=== PATIENT | female | born 1970 | race Caucasian/White ===

== ENCOUNTER 2018-06-21 10:22 | Outpatient (CLI) | payer OTHER | END 2018-06-21 23:59 | disposition home or self-care (01) | LOC: RAD 10:22 | DX: Z11.1 Encounter for screening for respiratory tuberculosis (principal); F17.200 Nicotine dependence, unspecified, uncomplicated | CPT/HCPCS: 71045 ==

== ENCOUNTER 2018-11-04 23:16 | Emergency (ER) | payer OTHER ==
[~2018-11-04] VITALS: Ht 167.6 cm; Wt 87.3 kg
[2018-11-05] MEDS ORDERED: ketorolac trometh inj. 60 MG/2 ML VIAL IM ONE (00:40)
[2018-11-05] MEDS ORDERED: cyclobenzaprine 10mg tablet PO ONE (02:10)
[2018-11-05 02:15] LABS: PARTIAL THROMBOPLASTIN TIME 29 SECONDS (22-32)
[2018-11-05 02:16] LABS: ALANINE AMINOTRANSFERASE 20 U/L (12-78); ALBUMIN 3.4 G/DL (3.4-5.0); ALBUMIN/GLOBULIN RATIO 0.9 (1.1-1.5); ALKALINE PHOSPHATASE 109 IU/L (46-116); ANION GAP 12 (8-16); ASPARTATE AMINO TRANSFERASE 9 U/L (10-37); BILIRUBIN,TOTAL 0.1 MG/DL (0.1-1.0); BLOOD UREA NITROGEN 15 MG/DL (7-18); CALCIUM 8.8 MG/DL (8.5-10.1); CHLORIDE 107 MMOL/L (99-107); CREATININE 0.79 MG/DL (0.40-0.90); GLUCOSE 105 MG/DL (70-104); POTASSIUM 3.8 MMOL/L (3.5-5.1); SODIUM 141 MMOL/L (135-145); TOTAL CARBON DIOXIDE 22.2 MMOL/L (24-32); TOTAL PROTEIN 7.2 G/DL (6.4-8.2); eGFR 78 ML/MIN
[2018-11-05 02:31] LABS: BASOPHILS # (AUTO) 0.1 X10'3 (0-0.2); BASOPHILS % (AUTO) 0.7 % (0-1); EOSINOPHILS # (AUTO) 0.4 X10'3 (0-0.9); HEMATOCRIT 41.6 % (35.0-45.0); HEMOGLOBIN 13.1 g/dl (12.0-16.0); LYMPHOCYTES # (AUTO) 3.4 X10'3 (1.1-4.8); LYMPHOCYTES % (AUTO) 29.6 % (21-51); MEAN CORPUSCULAR HEMOGLOBIN 23.9 PG (27.0-31.0); MEAN CORPUSCULAR HGB CONC 31.4 g/dL (33.0-36.5); MEAN PLATELET VOLUME 7.9 FL (7.4-10.4); MONOCYTES # (AUTO) 0.8 X10'3 (0-0.9); MONOCYTES % (AUTO) 6.7 % (2-12); NEUTROPHILS # (AUTO) 6.9 X10'3 (1.8-7.7); PLATELET COUNT 276 X10'3 (140-440); RED BLOOD COUNT 5.47 X10'6 (4.20-5.60); RED CELL DISTRIBUTION WIDTH 20.2 % (11.5-14.5); WHITE BLOOD COUNT 11.6 X10'3 (4.5-11.0)
[2018-11-05] MEDS ORDERED: HYDROcodone/acetaminophen 5mg/325mg tablet PO ONE (03:30)
[2018-11-05 05:01] VITALS: BP 151/91
== END 2018-11-05 05:06 | disposition home or self-care (01) ==
LOC: ER 23:18
DX: G44.209 Tension-type headache, unspecified, not intractable (principal); M54.2 Cervicalgia; R42 Dizziness and giddiness
CPT/HCPCS: 36415; 70450; 71045; 80053; 84484; 85025; 85610; 85730; 93005; 96372; 99284; J1885

== ENCOUNTER 2019-01-18 08:27 | Emergency (ER) | payer OTHER ==
[~2019-01-18] VITALS: Ht 167.6 cm; Wt 97.7 kg
[2019-01-18 09:20] LABS: CLARITY,URINE SLIGHTLY CLOUDY (Clear); COLOR,URINE YELLOW (Yellow); GLUCOSE, URINE NEGATIVE (Neg); KETONES,URINE NEGATIVE (Neg); LEUKOCYTE ESTERASE ,URINE NEGATIVE (Neg); NITRITES, URINE NEGATIVE (Neg); OCCULT BLOOD,URINE NEGATIVE (Neg); PROTEIN,URINE NEGATIVE (Neg); UA COLLECTION TYPE CLN CATCH MIDSTREAM; UROBILINOGEN,URINE 0.2 E.U/dL (0.2-1.0)
[2019-01-18 09:21] LABS: URINE HCG NEGATIVE (NEG)
[2019-01-18 09:27] LABS: BACTERIA,URINE 2+ /HPF (Neg); MUCUS STRANDS MODERATE /LPF (Neg); RBC,URINE 0-2 /HPF (0-2); SQUAMOUS EPITHELIAL CELL,UR MANY /LPF (FEW); WBC,URINE 0-4 /HPF (0-4)
[2019-01-18 10:20] VITALS: BP 177/137
[2019-01-18] MEDS ORDERED: ketorolac trometh inj. 60 MG/2 ML VIAL IM ONE (10:20)
[2019-01-18] MEDS ORDERED: HYDROcodone/acetaminophen 5mg/325mg tablet PO ONE (10:20)
[2019-01-18 11:07] LABS: BASOPHILS # (AUTO) 0.1 X10'3 (0-0.2); BASOPHILS % (AUTO) 0.8 % (0-1); EOSINOPHILS # (AUTO) 0.1 X10'3 (0-0.9); HEMATOCRIT 40.8 % (35.0-45.0); HEMOGLOBIN 13.4 g/dl (12.0-16.0); LYMPHOCYTES # (AUTO) 2.2 X10'3 (1.1-4.8); LYMPHOCYTES % (AUTO) 27.2 % (21-51); MEAN CORPUSCULAR HEMOGLOBIN 25.9 PG (27.0-31.0); MEAN CORPUSCULAR HGB CONC 32.7 g/dL (33.0-36.5); MEAN CORPUSCULAR VOLUME 79.1 FL (78-98); MEAN PLATELET VOLUME 6.9 FL (7.4-10.4); MONOCYTES # (AUTO) 0.6 X10'3 (0-0.9); MONOCYTES % (AUTO) 7.2 % (2-12); NEUTROPHILS # (AUTO) 5.1 X10'3 (1.8-7.7); NEUTROPHILS % (AUTO) 63.8 % (42-75); PLATELET COUNT 274 X10'3 (140-440); RED BLOOD COUNT 5.16 X10'6 (4.20-5.60); RED CELL DISTRIBUTION WIDTH 16.6 % (11.5-14.5); WHITE BLOOD COUNT 8.1 X10'3 (4.5-11.0)
[2019-01-18 11:26] LABS: ALANINE AMINOTRANSFERASE 26 U/L (12-78); ALBUMIN 3.6 G/DL (3.4-5.0); ALBUMIN/GLOBULIN RATIO 0.9 (1.1-1.5); ALKALINE PHOSPHATASE 87 IU/L (46-116); ANION GAP 10 (8-16); ASPARTATE AMINO TRANSFERASE 17 U/L (10-37); BILIRUBIN,TOTAL 0.3 MG/DL (0.1-1.0); BLOOD UREA NITROGEN 9 MG/DL (7-18); CALCIUM 8.9 MG/DL (8.5-10.1); CHLORIDE 108 MMOL/L (99-107); CREATININE 0.75 MG/DL (0.40-0.90); GLUCOSE 97 MG/DL (70-104); LIPASE 124 U/L (73-393); POTASSIUM 4.6 MMOL/L (3.5-5.1); SODIUM 140 MMOL/L (135-145); TOTAL CARBON DIOXIDE 22.3 MMOL/L (24-32); TOTAL PROTEIN 7.6 G/DL (6.4-8.2); eGFR 83 ML/MIN
[2019-01-18] MEDS ORDERED: HYDR-3965 PO (12:08)
--- NOTE | 2019-01-18 12:38 | NUR ---
D/C VS HR 72, BP 133/67, SAO2 97%, RR 15
== END 2019-01-18 12:39 | disposition home or self-care (01) ==
LOC: ER 08:28
DX: M54.41 Lumbago with sciatica, right side (principal); M25.531 Pain in right wrist; G43.909 Migraine, unspecified, not intractable, without status migrainosus; Z79.899 Other long term (current) drug therapy
CPT/HCPCS: 36415; 72131; 80053; 81001; 81025; 83690; 85025; 96372; 99284; J1885

== ENCOUNTER 2019-01-31 08:42 | Outpatient (CLI) | payer OTHER | END 2019-01-31 23:59 | disposition home or self-care (01) | LOC: RAD 08:42 | PROVIDERS: ATTEND Family Medicine | DX: M51.27 Other intervertebral disc displacement, lumbosacral region (principal); M47.816 Spondylosis without myelopathy or radiculopathy, lumbar region; F17.200 Nicotine dependence, unspecified, uncomplicated | CPT/HCPCS: 72148 ==

== ENCOUNTER 2019-02-19 11:13 | Inpatient (IN) | payer OTHER ==
[~2019-02-19] VITALS: Ht 167.6 cm; Wt 93.0 kg
[2019-02-19 12:47] LABS: URINE HCG NEGATIVE (NEG)
[2019-02-19] MEDS ORDERED: LORazepam 2 mg/ml vial IV ONE (12:55)
[2019-02-19 12:56] LABS: BASOPHILS % (AUTO) 0.7 % (0-1); EOSINOPHILS # (AUTO) 0.1 X10'3 (0-0.9); EOSINOPHILS % (AUTO) 1.4 % (0-6); HEMATOCRIT 41.2 % (35.0-45.0); LYMPHOCYTES # (AUTO) 1.8 X10'3 (1.1-4.8); LYMPHOCYTES % (AUTO) 28.7 % (21-51); MEAN CORPUSCULAR HEMOGLOBIN 25.3 PG (27.0-31.0); MEAN CORPUSCULAR HGB CONC 31.6 g/dL (33.0-36.5); MEAN PLATELET VOLUME 7.4 FL (7.4-10.4); MONOCYTES # (AUTO) 0.4 X10'3 (0-0.9); NEUTROPHILS # (AUTO) 3.9 X10'3 (1.8-7.7); NEUTROPHILS % (AUTO) 62.2 % (42-75); PLATELET COUNT 254 X10'3 (140-440); RED BLOOD COUNT 5.15 X10'6 (4.20-5.60); RED CELL DISTRIBUTION WIDTH 15.6 % (11.5-14.5); WHITE BLOOD COUNT 6.4 X10'3 (4.5-11.0)
[2019-02-19 12:57] LABS: CLARITY,URINE CLEAR (Clear); COLOR,URINE STRAW (Yellow); GLUCOSE, URINE NEGATIVE (Neg); KETONES,URINE NEGATIVE (Neg); LEUKOCYTE ESTERASE ,URINE NEGATIVE (Neg); NITRITES, URINE NEGATIVE (Neg); OCCULT BLOOD,URINE NEGATIVE (Neg); PH,URINE 5.5 (4.8-8.0); PROTEIN,URINE NEGATIVE (Neg); UROBILINOGEN,URINE 0.2 E.U/dL (0.2-1.0)
[2019-02-19 13:03] LABS: UA COLLECTION TYPE CLN CATCH MIDSTREAM
[2019-02-19 13:09] LABS: ALANINE AMINOTRANSFERASE 29 U/L (12-78); ALBUMIN 3.8 G/DL (3.4-5.0); ALKALINE PHOSPHATASE 77 IU/L (46-116); ANION GAP 7 (8-16); ASPARTATE AMINO TRANSFERASE 20 U/L (10-37); BILIRUBIN,TOTAL 0.2 MG/DL (0.1-1.0); BLOOD UREA NITROGEN 11 MG/DL (7-18); BUN/CREATININE RATIO 13.4 (6.6-38.0); CALCIUM 8.9 MG/DL (8.5-10.1); CHLORIDE 107 MMOL/L (99-107); CREATININE 0.82 MG/DL (0.40-0.90); GLUCOSE 88 MG/DL (70-104); LIPASE 147 U/L (73-393); POTASSIUM 4.3 MMOL/L (3.5-5.1); SODIUM 139 MMOL/L (135-145); TOTAL CARBON DIOXIDE 24.6 MMOL/L (24-32); TOTAL PROTEIN 7.7 G/DL (6.4-8.2); eGFR 75 ML/MIN
--- NOTE | 2019-02-19 14:31 | NUR ---
PT BACK FROM MRI, PLACED ON MONITOR TO UPDATE VS, DR ANTHONY AT [facility] FOR RE-EVALUATION AND DISCUSSION OF RESULTS OF MRI NOW
[2019-02-19] MEDS ORDERED: MELO-102 PO (15:16)
[2019-02-19] MEDS ORDERED: BACL20TA PO (15:16)
[2019-02-19] MEDS ORDERED: DULO-31 PO (15:16)
[2019-02-19] MEDS ORDERED: ondansetron/PF 4mg/2ml inj IV PRN (16:15)
[2019-02-19] MEDS ORDERED: magnesium Cl slow-release 64mg tablet PO PRN (16:15)
[2019-02-19] MEDS ORDERED: morphine 2 MG/ML inj. syringe IV PRN ×2 (16:15)
[2019-02-19] MEDS ORDERED: magnesium 4gm in 100ml NS 100 ML IV PRN (16:15)
[2019-02-19] MEDS ORDERED: HYDROcodone/acetaminophen 5mg/325mg tablet PO PRN (16:15)
[2019-02-19] MEDS ORDERED: magnesium 2GM in 50ml NS 50 ML IV PRN (16:15)
[2019-02-19] MEDS ORDERED: acetaminophen 325mg tablet PO PRN ×2 (16:15)
[2019-02-19] MEDS ORDERED: potassium CL 10mEq/100ml bag 100 ML IV PRN ×2 (16:15)
[2019-02-19] MEDS ORDERED: potassium Cl 20 mEq SR tablet PO PRN ×2 (16:15)
[2019-02-19] MEDS: methylPREDNISolone SOD SUCC 1000 MG in NORMAL SALINE 100ml IV SCH (16:20)
[2019-02-19] MEDS ORDERED: methylPREDNISolone sod succ 125mg/2ml vial IV SCH (16:20)
[2019-02-19] MEDS ORDERED: insulin Lispro (HumaLOG) vial - multi-dose SQ SCH (16:25)
[2019-02-19] MEDS ORDERED: MESSAGE TO PHARMACY PO ONE (16:25)
[2019-02-19] MEDS ORDERED: dextrose 50%-water 50ml dispensing syringe IV PRN ×2 (16:25)
[2019-02-19] MEDS ORDERED: glucagon, human recombinant 1mg kit SUBCUT PRN (16:25)
[2019-02-19] MEDS ORDERED: dextrose ORAL solution 15 GM/59 ML bottle PO PRN ×2 (16:25)
--- NOTE | 2019-02-19 16:35 | NUR ---
CALLED PHARMACY TO VERIFY WHEN SOLUMEDROL WILL BE READY, [facility] STATES 10-15 MIN. WILL OBTAIN MEDICATION TO ADMINISTER WHEN READY.
[2019-02-19 16:55] LABS: HEMOGLOBIN A1C 5.4 % (4.5-6.2)
--- NOTE | 2019-02-19 17:15 | NUR ---
Received report from Margarita TEAGUE from ER. Pt. orientated to room. BG check and neuro check completed.
[2019-02-19 18:00] VITALS: BP_SYST 124; BP_SYST 130; BP_SYST 166; BP_DIAS 103; BP_DIAS 68; BP_DIAS 92
--- NOTE | 2019-02-19 18:36 | NUR ---
Problems reprioritized. Patient report given, questions answered & plan of care reviewed with Charito TEAGUE.
[2019-02-19] MEDS: heparin, porcine 5000 units/ml vial SQ SCH (20:00)
[2019-02-19] MEDS: docusate sod 100mg capsule PO SCH (20:00)
[2019-02-19] MEDS ORDERED: temazepam 15mg capsule PO PRN (21:00)
[2019-02-19] MEDS: insulin glargine (Lantus) pen - multi-dose SQ SCH (21:00)
[2019-02-19 22:00] VITALS: BP 120/66
[2019-02-20] VITALS (7 sets, daily range): BP systolic 115–171; BP diastolic 60–86
--- NOTE | 2019-02-20 06:09 | NUR ---
REPORT GIVEN TO HO MONSON.
[2019-02-20 06:44] LABS: BASOPHILS % (AUTO) 0.5 % (0-1); EOSINOPHILS % (AUTO) 0 % (0-6); HEMATOCRIT 41.3 % (35.0-45.0); HEMOGLOBIN 13.4 g/dl (12.0-16.0); LYMPHOCYTES # (AUTO) 0.6 X10'3 (1.1-4.8); LYMPHOCYTES % (AUTO) 8.7 % (21-51); MEAN CORPUSCULAR HEMOGLOBIN 25.7 PG (27.0-31.0); MEAN CORPUSCULAR HGB CONC 32.4 g/dL (33.0-36.5); MEAN CORPUSCULAR VOLUME 79.3 FL (78-98); MEAN PLATELET VOLUME 8.3 FL (7.4-10.4); MONOCYTES % (AUTO) 0.6 % (2-12); NEUTROPHILS # (AUTO) 6.4 X10'3 (1.8-7.7); NEUTROPHILS % (AUTO) 90.2 % (42-75); PLATELET COUNT 202 X10'3 (140-440); RED CELL DISTRIBUTION WIDTH 15.5 % (11.5-14.5); WHITE BLOOD COUNT 7.1 X10'3 (4.5-11.0)
[2019-02-20 07:02] LABS: ALANINE AMINOTRANSFERASE 36 U/L (12-78); ALBUMIN 3.6 G/DL (3.4-5.0); ALBUMIN/GLOBULIN RATIO 0.8 (1.1-1.5); ALKALINE PHOSPHATASE 74 IU/L (46-116); ANION GAP 13 (8-16); ASPARTATE AMINO TRANSFERASE 29 U/L (10-37); BILIRUBIN,TOTAL 0.1 MG/DL (0.1-1.0); BLOOD UREA NITROGEN 14 MG/DL (7-18); BUN/CREATININE RATIO 17.5 (6.6-38.0); CALCIUM 9.3 MG/DL (8.5-10.1); CHLORIDE 106 MMOL/L (99-107); GLUCOSE 136 MG/DL (70-104); POTASSIUM 4.4 MMOL/L (3.5-5.1); SODIUM 138 MMOL/L (135-145); TOTAL CARBON DIOXIDE 19.4 MMOL/L (24-32); TOTAL PROTEIN 7.9 G/DL (6.4-8.2); eGFR 77 ML/MIN
[2019-02-20] MEDS: docusate sod 100mg capsule PO SCH ×2 (08:00→20:00)
[2019-02-20] MEDS: K and/or MAG REPLACEMENT MC SCH (08:00)
[2019-02-20] MEDS: HYDROcodone/acetaminophen 10/325mg tab PO PRN ×3 (08:12→20:00)
[2019-02-20] MEDS: methylPREDNISolone SOD SUCC 1000 MG in NORMAL SALINE 100ml IV SCH (08:13)
[2019-02-20] MEDS: heparin, porcine 5000 units/ml vial SQ SCH ×2 (08:13→19:58)
[2019-02-20] MEDS ORDERED: gadobutrol 10mmol/10ml inj. IV ONE ×2 (08:31→17:33)
[2019-02-20] MEDS ORDERED: LORazepam 1 MG tablet PO ONE (10:45)
--- NOTE | 2019-02-20 15:00 | NUR ---
Received a telephone call from Jovi in Radiology who informed that pt had MRI today of C-spine & Cervical spine. Jovi stated there was a "abnormal lesion seen at T9 that measures 10 x 4 cm that "enhances" active disease. Recommendation was for pt to have rescanning of MRI with contrast in the future, and pt needs a consult with a Neurologist. Paged to inform her of MRI results and recommendations, via phone call from Radiology. Did not receive return phone call from Dr. Fields. Will continue to monitor patient closely.
--- NOTE | 2019-02-20 18:29 | NUR ---
Problems reprioritized. Patient report given, questions answered & plan of care reviewed with HO Mcneill.
[2019-02-20] MEDS: insulin glargine (Lantus) pen - multi-dose SQ SCH (21:00)
[2019-02-21] VITALS (8 sets, daily range): BP systolic 118–159; BP diastolic 54–86
[2019-02-21] MEDS: HYDROcodone/acetaminophen 10/325mg tab PO PRN ×4 (00:44→19:39)
[2019-02-21 05:45] LABS: BASOPHILS % (AUTO) 0.2 % (0-1); EOSINOPHILS % (AUTO) 0 % (0-6); HEMATOCRIT 36.6 % (35.0-45.0); HEMOGLOBIN 11.8 g/dl (12.0-16.0); LYMPHOCYTES # (AUTO) 0.8 X10'3 (1.1-4.8); LYMPHOCYTES % (AUTO) 5.2 % (21-51); MEAN CORPUSCULAR HEMOGLOBIN 25.4 PG (27.0-31.0); MEAN CORPUSCULAR HGB CONC 32.2 g/dL (33.0-36.5); MEAN CORPUSCULAR VOLUME 78.9 FL (78-98); MEAN PLATELET VOLUME 7.9 FL (7.4-10.4); MONOCYTES # (AUTO) 0.9 X10'3 (0-0.9); MONOCYTES % (AUTO) 5.5 % (2-12); NEUTROPHILS % (AUTO) 89.1 % (42-75); PLATELET COUNT 239 X10'3 (140-440); RED BLOOD COUNT 4.64 X10'6 (4.20-5.60); WHITE BLOOD COUNT 15.7 X10'3 (4.5-11.0)
--- NOTE | 2019-02-21 05:56 | NUR ---
REPORT GIVEN TO HO MONSON.
[2019-02-21 06:08] LABS: ALANINE AMINOTRANSFERASE 18 U/L (12-78); ALBUMIN 3.2 G/DL (3.4-5.0); ALBUMIN/GLOBULIN RATIO 0.9 (1.1-1.5); ALKALINE PHOSPHATASE 73 IU/L (46-116); ANION GAP 10 (8-16); ASPARTATE AMINO TRANSFERASE 10 U/L (10-37); BILIRUBIN,TOTAL 0.2 MG/DL (0.1-1.0); BLOOD UREA NITROGEN 16 MG/DL (7-18); BUN/CREATININE RATIO 19.3 (6.6-38.0); CALCIUM 8.9 MG/DL (8.5-10.1); CHLORIDE 106 MMOL/L (99-107); CREATININE 0.83 MG/DL (0.40-0.90); GLUCOSE 128 MG/DL (70-104); MAGNESIUM 2.1 MG/DL (1.5-2.4); POTASSIUM 4.3 MMOL/L (3.5-5.1); SODIUM 138 MMOL/L (135-145); TOTAL CARBON DIOXIDE 22.2 MMOL/L (24-32); TOTAL PROTEIN 6.6 G/DL (6.4-8.2); eGFR 74 ML/MIN
--- NOTE | 2019-02-21 06:43 | NUR ---
Patient in room ORTHO 4022. I have received report from HO Johnson and had the opportunity to ask questions and assume patient care.
[2019-02-21] MEDS: K and/or MAG REPLACEMENT MC SCH (08:00)
[2019-02-21] MEDS: nicotine 14mg patch - 24hr TD SCH (08:00)
[2019-02-21] MEDS: pantoprazole 40mg Tablet.DR PO SCH (08:03)
[2019-02-21] MEDS: docusate sod 100mg capsule PO SCH ×2 (08:04→19:38)
[2019-02-21] MEDS: duloxetine 30mg CAPSULE.DR PO SCH (08:04)
[2019-02-21] MEDS: heparin, porcine 5000 units/ml vial SQ SCH ×2 (08:10→19:38)
[2019-02-21] MEDS: methylPREDNISolone SOD SUCC 1000 MG in NORMAL SALINE 100ml IV SCH (08:30)
--- NOTE | 2019-02-21 11:56 | NUR ---
Student documentation: I have reviewed and agree with all interventions, assessments performed and documented by Cesilia Steen.
--- NOTE | 2019-02-21 18:48 | NUR ---
Problems reprioritized. Patient report given, questions answered & plan of care reviewed with HO Alas.
--- NOTE | 2019-02-21 18:49 | NUR ---
Patient in room ORTHO 4022. I have received report from ERMIAS TEAGUE and had the opportunity to ask questions and assume patient care.
[2019-02-21] MEDS: insulin glargine (Lantus) pen - multi-dose SQ SCH (21:00)
[2019-02-22 06:00] VITALS: BP 137/62
[2019-02-22 06:04] LABS: BASOPHILS % (AUTO) 0.1 % (0-1); EOSINOPHILS % (AUTO) 0 % (0-6); HEMATOCRIT 36.7 % (35.0-45.0); HEMOGLOBIN 11.7 g/dl (12.0-16.0); MEAN CORPUSCULAR HEMOGLOBIN 25.4 PG (27.0-31.0); MEAN CORPUSCULAR HGB CONC 31.9 g/dL (33.0-36.5); MEAN CORPUSCULAR VOLUME 79.6 FL (78-98); MEAN PLATELET VOLUME 8.1 FL (7.4-10.4); MONOCYTES # (AUTO) 0.8 X10'3 (0-0.9); MONOCYTES % (AUTO) 5.8 % (2-12); NEUTROPHILS # (AUTO) 11.2 X10'3 (1.8-7.7); NEUTROPHILS % (AUTO) 86.1 % (42-75); PLATELET COUNT 227 X10'3 (140-440); RED BLOOD COUNT 4.62 X10'6 (4.20-5.60); RED CELL DISTRIBUTION WIDTH 15.8 % (11.5-14.5)
[2019-02-22 06:20] LABS: ALANINE AMINOTRANSFERASE 16 U/L (12-78); ALBUMIN 3.1 G/DL (3.4-5.0); ALBUMIN/GLOBULIN RATIO 0.9 (1.1-1.5); ALKALINE PHOSPHATASE 58 IU/L (46-116); ANION GAP 11 (8-16); ASPARTATE AMINO TRANSFERASE 8 U/L (10-37); BILIRUBIN,TOTAL 0.2 MG/DL (0.1-1.0); BLOOD UREA NITROGEN 14 MG/DL (7-18); BUN/CREATININE RATIO 21.5 (6.6-38.0); CALCIUM 8.6 MG/DL (8.5-10.1); CHLORIDE 106 MMOL/L (99-107); CREATININE 0.65 MG/DL (0.40-0.90); GLUCOSE 101 MG/DL (70-104); MAGNESIUM 2.3 MG/DL (1.5-2.4); POTASSIUM 4.4 MMOL/L (3.5-5.1); SODIUM 140 MMOL/L (135-145); TOTAL CARBON DIOXIDE 23.5 MMOL/L (24-32); TOTAL PROTEIN 6.4 G/DL (6.4-8.2); eGFR > 90 ML/MIN
--- NOTE | 2019-02-22 06:20 | NUR ---
Problems reprioritized. Patient report given, questions answered & plan of care reviewed with ALEKSANDRA TEAGUE.
--- NOTE | 2019-02-22 06:33 | NUR ---
Patient in room ORTHO 4022. I have received report from Evette TEAGUE and had the opportunity to ask questions and assume patient care.
[2019-02-22] MEDS: pantoprazole 40mg Tablet.DR PO SCH (07:50)
[2019-02-22 08:00] VITALS: BP_SYST 122; BP_SYST 135; BP_SYST 147; BP_DIAS 60; BP_DIAS 70; BP_DIAS 76
[2019-02-22] MEDS: nicotine 14mg patch - 24hr TD SCH (08:00)
[2019-02-22] MEDS: K and/or MAG REPLACEMENT MC SCH (08:00)
[2019-02-22] MEDS: docusate sod 100mg capsule PO SCH ×2 (08:19→19:52)
[2019-02-22] MEDS: duloxetine 30mg CAPSULE.DR PO SCH (08:20)
[2019-02-22] MEDS: heparin, porcine 5000 units/ml vial SQ SCH ×2 (08:21→19:52)
[2019-02-22] MEDS: methylPREDNISolone SOD SUCC 1000 MG in NORMAL SALINE 100ml IV SCH (08:34)
[2019-02-22] MEDS: HYDROcodone/acetaminophen 10/325mg tab PO PRN ×3 (09:24→21:08)
[2019-02-22 10:00] VITALS: BP 122/60
--- NOTE | 2019-02-22 11:45 | NUR ---
Student documentation: I have reviewed all interventions, assessments performed and documented by London Steele. Student Medication Administration: For this medication-pass time frame, all medication were reviewed, dispensed, administered and documented per hospital policy by London Steele.
[2019-02-22 18:00] VITALS: BP 144/65
--- NOTE | 2019-02-22 18:26 | NUR ---
Patient report given to Corazon TEAGUE
--- NOTE | 2019-02-22 18:45 | NUR ---
Patient in room ORTHO 4022. I have received report from HO Main and had the opportunity to ask questions and assume patient care.
[2019-02-22] MEDS: insulin glargine (Lantus) pen - multi-dose SQ SCH (21:00)
[2019-02-22 22:00] VITALS: BP 139/69
[2019-02-23] VITALS (7 sets, daily range): BP systolic 96–163; BP diastolic 45–86
[2019-02-23] MEDS: HYDROcodone/acetaminophen 10/325mg tab PO PRN ×4 (02:44→17:21)
--- NOTE | 2019-02-23 06:28 | NUR ---
Patient in room ORTHO 4022. I have received report from Corazon TEAGUE and had the opportunity to ask questions and assume patient care.
[2019-02-23 06:36] LABS: BASOPHILS % (AUTO) 0.3 % (0-1); EOSINOPHILS % (AUTO) 0 % (0-6); HEMATOCRIT 35.3 % (35.0-45.0); HEMOGLOBIN 11.3 g/dl (12.0-16.0); LYMPHOCYTES # (AUTO) 1.4 X10'3 (1.1-4.8); LYMPHOCYTES % (AUTO) 12.9 % (21-51); MEAN CORPUSCULAR HEMOGLOBIN 25.2 PG (27.0-31.0); MEAN CORPUSCULAR VOLUME 78.7 FL (78-98); MEAN PLATELET VOLUME 8.4 FL (7.4-10.4); MONOCYTES # (AUTO) 0.9 X10'3 (0-0.9); NEUTROPHILS # (AUTO) 8.8 X10'3 (1.8-7.7); NEUTROPHILS % (AUTO) 78.8 % (42-75); PLATELET COUNT 240 X10'3 (140-440); RED BLOOD COUNT 4.48 X10'6 (4.20-5.60); WHITE BLOOD COUNT 11.2 X10'3 (4.5-11.0)
--- NOTE | 2019-02-23 06:37 | NUR ---
Problems reprioritized. Patient report given, questions answered & plan of care reviewed with HO Robins.
[2019-02-23 07:08] LABS: ALANINE AMINOTRANSFERASE 20 U/L (12-78); ALBUMIN 3.1 G/DL (3.4-5.0); ALBUMIN/GLOBULIN RATIO 0.9 (1.1-1.5); ALKALINE PHOSPHATASE 54 IU/L (46-116); ANION GAP 9 (8-16); ASPARTATE AMINO TRANSFERASE 11 U/L (10-37); BILIRUBIN,TOTAL 0.2 MG/DL (0.1-1.0); BLOOD UREA NITROGEN 15 MG/DL (7-18); BUN/CREATININE RATIO 17.4 (6.6-38.0); CALCIUM 8.6 MG/DL (8.5-10.1); CHLORIDE 105 MMOL/L (99-107); CREATININE 0.86 MG/DL (0.40-0.90); GLUCOSE 89 MG/DL (70-104); MAGNESIUM 2.2 MG/DL (1.5-2.4); POTASSIUM 4.1 MMOL/L (3.5-5.1); SODIUM 139 MMOL/L (135-145); TOTAL CARBON DIOXIDE 25.3 MMOL/L (24-32); TOTAL PROTEIN 6.4 G/DL (6.4-8.2); eGFR 71 ML/MIN
[2019-02-23] MEDS: pantoprazole 40mg Tablet.DR PO SCH (07:18)
[2019-02-23] MEDS: docusate sod 100mg capsule PO SCH ×2 (07:18→20:06)
[2019-02-23] MEDS: duloxetine 30mg CAPSULE.DR PO SCH (07:19)
[2019-02-23] MEDS: nicotine 14mg patch - 24hr TD SCH (07:20)
[2019-02-23] MEDS: methylPREDNISolone SOD SUCC 1000 MG in NORMAL SALINE 100ml IV SCH (07:20)
[2019-02-23] MEDS: K and/or MAG REPLACEMENT MC SCH (07:20)
[2019-02-23] MEDS: heparin, porcine 5000 units/ml vial SQ SCH ×2 (07:21→20:06)
--- NOTE | 2019-02-23 11:43 | NUR ---
Student Medication Administration: For this medication-pass time frame, all medication were reviewed, dispensed, administered and documented per hospital policy by Petra Steele. Student documentation: I have reviewed all interventions, assessments performed and documented by Petra Steele.
--- NOTE | 2019-02-23 11:54 | NUR ---
Initial: Pt admit with MS flareup reporting difficulty swallowing secondary to numbness. Pt s/p BSS 02/[address] tavares to continue regular diet d/t pt swallowing well with no s/s aspiration. Pt on regular diet documented with 75-100% PO intake throughout LOS meeting nutrient needs. Pt s/p MRI with a lesion noted in medulla oblongata and thoracic cord per MD notes. LBM 02/21 receiving routine Colace. No edema or wounds. No nutrition diagnosis at this time. Will continue to follow. Recommendations: 1) Continue regular diet 2) Bowel care 3) Wt per rx Addendum: 02/23/19 at [address] Amended: Links added.
--- NOTE | 2019-02-23 18:18 | NUR ---
Problems reprioritized. Patient report given, questions answered & plan of care reviewed with Prudence RN.
--- NOTE | 2019-02-23 18:50 | NUR ---
Patient in room ORTHO 4022. I have received report from Shimon TEAGUE and had the opportunity to ask questions and assume patient care. patient is with family by his bedside.
[2019-02-23] MEDS: insulin glargine (Lantus) pen - multi-dose SQ SCH (21:00)
[2019-02-24] MEDS: HYDROcodone/acetaminophen 10/325mg tab PO PRN ×3 (05:42→14:06)
[2019-02-24 06:00] VITALS: BP 131/69
[2019-02-24 06:10] LABS: BASOPHILS % (AUTO) 0.4 % (0-1); EOSINOPHILS % (AUTO) 0 % (0-6); HEMATOCRIT 35.7 % (35.0-45.0); HEMOGLOBIN 11.7 g/dl (12.0-16.0); LYMPHOCYTES # (AUTO) 1.8 X10'3 (1.1-4.8); LYMPHOCYTES % (AUTO) 16.8 % (21-51); MEAN CORPUSCULAR HEMOGLOBIN 25.5 PG (27.0-31.0); MEAN CORPUSCULAR HGB CONC 32.8 g/dL (33.0-36.5); MEAN CORPUSCULAR VOLUME 77.7 FL (78-98); MEAN PLATELET VOLUME 8.1 FL (7.4-10.4); MONOCYTES % (AUTO) 9.8 % (2-12); NEUTROPHILS # (AUTO) 7.7 X10'3 (1.8-7.7); PLATELET COUNT 236 X10'3 (140-440); RED BLOOD COUNT 4.59 X10'6 (4.20-5.60); RED CELL DISTRIBUTION WIDTH 15.8 % (11.5-14.5); WHITE BLOOD COUNT 10.5 X10'3 (4.5-11.0)
[2019-02-24 06:22] LABS: ALANINE AMINOTRANSFERASE 22 U/L (12-78); ALBUMIN 2.9 G/DL (3.4-5.0); ALBUMIN/GLOBULIN RATIO 0.9 (1.1-1.5); ALKALINE PHOSPHATASE 50 IU/L (46-116); ANION GAP 5 (8-16); ASPARTATE AMINO TRANSFERASE 11 U/L (10-37); BILIRUBIN,TOTAL 0.2 MG/DL (0.1-1.0); BLOOD UREA NITROGEN 19 MG/DL (7-18); BUN/CREATININE RATIO 22.9 (6.6-38.0); CALCIUM 8.5 MG/DL (8.5-10.1); CHLORIDE 106 MMOL/L (99-107); CREATININE 0.83 MG/DL (0.40-0.90); GLUCOSE 86 MG/DL (70-104); MAGNESIUM 2.2 MG/DL (1.5-2.4); POTASSIUM 4.2 MMOL/L (3.5-5.1); SODIUM 140 MMOL/L (135-145); TOTAL CARBON DIOXIDE 28.7 MMOL/L (24-32); eGFR 74 ML/MIN
--- NOTE | 2019-02-24 06:24 | NUR ---
Problems reprioritized. Patient report given, questions answered & plan of care reviewed with Shimon TEAGUE. Patient ambulating in the hallway with a front wheel walker and did request pain meds and was administered per MD order.
--- NOTE | 2019-02-24 06:25 | NUR ---
Patient in room ORTHO 4018. I have received report from Damaris TEAGUE and had the opportunity to ask questions and assume patient care.
[2019-02-24] MEDS: docusate sod 100mg capsule PO SCH (07:02)
[2019-02-24] MEDS: duloxetine 30mg CAPSULE.DR PO SCH (07:02)
[2019-02-24] MEDS: pantoprazole 40mg Tablet.DR PO SCH (07:02)
[2019-02-24] MEDS: K and/or MAG REPLACEMENT MC SCH (07:03)
[2019-02-24] MEDS: methylPREDNISolone SOD SUCC 1000 MG in NORMAL SALINE 100ml IV SCH (07:03)
[2019-02-24] MEDS: heparin, porcine 5000 units/ml vial SQ SCH (07:03)
[2019-02-24] MEDS: nicotine 14mg patch - 24hr TD SCH (07:04)
[2019-02-24 10:00] VITALS: BP 144/78
[2019-02-24] MEDS ORDERED: PRED20TA PO (12:39)
--- NOTE | 2019-02-24 15:00 | NUR ---
Safe DC with spouse. all personal items with patient.
== END 2019-02-24 15:00 | disposition home or self-care (01) | DRG 60 ==
LOC: ER 11:14 → ED HOLD 16:13 → ORTHO 4S 17:46
PROVIDERS: ADMIT Internal Medicine; ATTEND Internal Medicine
DX: G35 Multiple sclerosis (principal); F17.210 Nicotine dependence, cigarettes, uncomplicated; M50.30 Other cervical disc degeneration, unspecified cervical region; M51.36 Other intervertebral disc degeneration, lumbar region; F32.9 Major depressive disorder, single episode, unspecified; G43.909 Migraine, unspecified, not intractable, without status migrainosus; Z79.1 Long term (current) use of non-steroidal anti-inflammatories (NSAID); Z79.899 Other long term (current) drug therapy
CPT/HCPCS: 36415; 70553; 72156; 72157; 76937; 80053; 81003; 81025; 82948; 83036; 83690; 83735; 85025; 87081; 92508; 92616; 96374; 97110; 97116; 97162; 97530; 99285; A9585; G0378; J1644; J1815; J2060; J2270; J2930

== ENCOUNTER 2019-02-28 10:20 | Emergency (ER) | payer OTHER ==
[~2019-02-28] VITALS: Ht 167.6 cm; Wt 93.0 kg
[~2019-02-28 10:20] MED LIST: BACL20TA PO; DULO-31 PO; MELO-102 PO; PRED20TA PO
[2019-02-28 10:30] VITALS: BP 172/98
[2019-02-28] MEDS ORDERED: HYDR-4353 PO (13:12)
[2019-02-28] MEDS ORDERED: HYDROcodone/acetaminophen 10/325mg tab PO ONE (13:20)
== END 2019-02-28 13:34 | disposition home or self-care (01) ==
LOC: ER 10:20
DX: G35 Multiple sclerosis (principal); G43.909 Migraine, unspecified, not intractable, without status migrainosus; Z79.899 Other long term (current) drug therapy
CPT/HCPCS: 99284

== ENCOUNTER 2019-05-15 10:15 | Emergency (ER) | payer OTHER ==
[~2019-05-15] VITALS: Ht 167.6 cm; Wt 99.0 kg
[~2019-05-15 10:15] MED LIST changes: -PRED20TA PO
[2019-05-15 10:39] VITALS: BP 170/95
[2019-05-15] MEDS ORDERED: GABA-530 PO (11:53)
[2019-05-15] MEDS ORDERED: HYDR-4383 PO (11:53)
== END 2019-05-15 12:13 | disposition home or self-care (01) ==
LOC: ER 10:16
DX: G35 Multiple sclerosis (principal); M79.605 Pain in left leg; G43.909 Migraine, unspecified, not intractable, without status migrainosus; Z79.899 Other long term (current) drug therapy
CPT/HCPCS: 99283

== ENCOUNTER 2019-07-10 10:06 | Emergency (ER) | payer OTHER ==
[~2019-07-10] VITALS: Ht 167.6 cm; Wt 97.3 kg
[~2019-07-10 10:06] MED LIST changes: +GABA-530 PO; +HYDR-4383 PO
[2019-07-10 10:08] VITALS: BP 191/86
[2019-07-10] MEDS ORDERED: dexamethasone sod phosphate 10mg/ml inj IM STA (10:21)
[2019-07-10] MEDS ORDERED: gabapentin 400mg capsule PO STA (10:21)
[2019-07-10] MEDS ORDERED: gabapentin 300mg capsule PO STA (10:24)
[2019-07-10] MEDS ORDERED: GABA-532 PO (10:25)
[2019-07-10] MEDS ORDERED: ketorolac trometh. 30mg/ml inj. IM ONE (10:25)
[2019-07-10] MEDS ORDERED: HYDR-4383 PO (10:25)
== END 2019-07-10 11:00 | disposition home or self-care (01) ==
LOC: ER 10:06
DX: G35 Multiple sclerosis (principal); G89.29 Other chronic pain; G43.909 Migraine, unspecified, not intractable, without status migrainosus
CPT/HCPCS: 96372; 99284; J1100; J1885

== ENCOUNTER 2019-12-13 13:30 | Emergency (ER) | payer BC, OTHER ==
[~2019-12-13] VITALS: Ht 167.6 cm; Wt 88.0 kg
[~2019-12-13 13:30] MED LIST changes: +GABA-532 PO
[2019-12-13 14:20] VITALS: BP 152/108
[2019-12-13] MEDS ORDERED: HYDROcodone/acetaminophen 10/325mg tab PO ONE (14:50)
[2019-12-13] MEDS ORDERED: dexamethasone sod phosphate 10mg/ml inj IM STA (15:35)
[2019-12-13] MEDS ORDERED: HYDR-3965 PO (15:37)
== END 2019-12-13 16:30 | disposition home or self-care (01) ==
LOC: EEVIPCON 13:31 → ER 13:31
DX: G89.29 Other chronic pain (principal); M54.5 Low back pain; M79.604 Pain in right leg; M25.551 Pain in right hip; G43.909 Migraine, unspecified, not intractable, without status migrainosus; Z79.899 Other long term (current) drug therapy
CPT/HCPCS: 96372; 99283; J1100

== ENCOUNTER 2020-02-25 12:35 | Emergency (ER) | payer BC ==
[~2020-02-25] VITALS: Ht 167.6 cm; Wt 95.9 kg
[2020-02-25 12:37] VITALS: BP 140/88
[2020-02-25] MEDS ORDERED: ketorolac trometh inj. 60 MG/2 ML VIAL IM ONE (12:45)
== END 2020-02-25 13:04 | disposition home or self-care (01) ==
LOC: ER 12:35 → EEVIPCON 12:35 → ER 13:04
DX: M79.18 Myalgia, other site (principal); M70.61 Trochanteric bursitis, right hip; G35 Multiple sclerosis; M25.551 Pain in right hip; G43.909 Migraine, unspecified, not intractable, without status migrainosus; G89.29 Other chronic pain; F17.200 Nicotine dependence, unspecified, uncomplicated; Z79.899 Other long term (current) drug therapy; Y93.9 Activity, unspecified
CPT/HCPCS: 96372; 99283; J1885

== ENCOUNTER 2020-02-26 10:48 | Emergency (ER) | payer BC ==
[2020-02-26 10:51] VITALS: BP 156/88
--- NOTE | 2020-02-26 14:08 | NUR ---
PT WAS SEEN AND TREATED BY VINH MENSAH. NURSING NOTE NOT DONE.
== END 2020-02-26 14:09 | disposition home or self-care (01) ==
LOC: ER 10:49 → EEVIPCON 10:49 → ER 14:09
DX: Z00.00 Encounter for general adult medical examination without abnormal findings (principal); G43.909 Migraine, unspecified, not intractable, without status migrainosus; G89.29 Other chronic pain; Z79.899 Other long term (current) drug therapy
CPT/HCPCS: 99281

== ENCOUNTER 2020-07-16 12:20 | Inpatient (IN) | payer BC, OTHER ==
[~2020-07-16] VITALS: Ht 167.6 cm; Wt 95.5 kg
[2020-07-16 12:52] LABS: BASOPHILS % (AUTO) 0.5 % (0-1); EOSINOPHILS # (AUTO) 0.1 X10'3 (0-0.9); EOSINOPHILS % (AUTO) 0.8 % (0-6); HEMATOCRIT 51.1 % (35.0-45.0); HEMOGLOBIN 17.2 g/dl (12.0-16.0); LYMPHOCYTES # (AUTO) 2.5 X10'3 (1.1-4.8); LYMPHOCYTES % (AUTO) 26.7 % (21-51); MEAN CORPUSCULAR HEMOGLOBIN 29.2 PG (27.0-31.0); MEAN CORPUSCULAR HGB CONC 33.6 g/dL (33.0-36.5); MEAN CORPUSCULAR VOLUME 86.8 FL (78-98); MEAN PLATELET VOLUME 7.4 FL (7.4-10.4); MONOCYTES # (AUTO) 0.5 X10'3 (0-0.9); MONOCYTES % (AUTO) 5.3 % (2-12); NEUTROPHILS # (AUTO) 6.2 X10'3 (1.8-7.7); NEUTROPHILS % (AUTO) 66.7 % (42-75); PLATELET COUNT 281 X10'3 (140-440); RED BLOOD COUNT 5.88 X10'6 (4.20-5.60); RED CELL DISTRIBUTION WIDTH 12.9 % (11.5-14.5); WHITE BLOOD COUNT 9.4 X10'3 (4.5-11.0)
[2020-07-16 13:03] LABS: ALANINE AMINOTRANSFERASE 30 U/L (12-78); ALBUMIN 4.2 G/DL (3.4-5.0); ALKALINE PHOSPHATASE 104 IU/L (46-116); ANION GAP 13 (8-16); ASPARTATE AMINO TRANSFERASE 19 U/L (10-37); BILIRUBIN,TOTAL 0.3 MG/DL (0.1-1.0); BLOOD UREA NITROGEN 7 MG/DL (7-18); BUN/CREATININE RATIO 8.4 (6.6-38.0); CALCIUM 9.9 MG/DL (8.5-10.1); CHLORIDE 106 MMOL/L (99-107); CREATININE 0.83 MG/DL (0.40-0.90); GLUCOSE 101 MG/DL (70-104); PARTIAL THROMBOPLASTIN TIME 27 SECONDS (22-32); POTASSIUM 3.9 MMOL/L (3.5-5.1); SODIUM 142 MMOL/L (135-145); TOTAL CARBON DIOXIDE 23.1 MMOL/L (24-32); TOTAL PROTEIN 8.4 G/DL (6.4-8.2); eGFR 73 ML/MIN
[2020-07-16 13:05] LABS: TROPONIN I < 0.04 NG/ML (0.0-0.05)
[2020-07-16] MEDS ORDERED: iohexol 350MG/ML 100ml bottle IV ONE (13:14)
[2020-07-16] MEDS ORDERED: labetalol 20mg/4ml (5mg/ml) syringe IV ONE (13:30)
[2020-07-16] MEDS ORDERED: aspirin 81mg tab.chew PO ONE (13:30)
[2020-07-16] MEDS ORDERED: acetaminophen 325mg tablet PO PRN ×2 (15:00)
[2020-07-16] MEDS ORDERED: HYDROcodone/acetaminophen 5mg/325mg tablet PO PRN (15:00)
[2020-07-16] MEDS ORDERED: mag hydrox/Alum hydrox/simeth 30ml oral suspension PO PRN (15:00)
[2020-07-16] MEDS ORDERED: magnesium hydroxide 30ml (MOM) UD suspension PO PRN (15:00)
[2020-07-16] MEDS ORDERED: morphine 2 MG/ML inj. syringe IV PRN ×2 (15:00)
[2020-07-16] MEDS ORDERED: GADOTERATE MEGLUMINE 7.5 MMOL/15 ML VIAL IV ONE (15:49)
[2020-07-16] MEDS ORDERED: morphine 4 MG/ML inj SYRINge IV ONE (15:50)
[2020-07-16] MEDS ORDERED: DULO60CA65 PO (15:51)
[2020-07-16] MEDS ORDERED: PENI-88 PO (15:51)
[2020-07-16] MEDS: ondansetron/PF 4mg/2ml inj IV PRN (15:58)
[2020-07-16] MEDS ORDERED: ondansetron/PF 4mg/2ml inj IV ONE (16:00)
[2020-07-16] MEDS ORDERED: methylPREDNISolone sod succ 125mg/2ml vial IV ONE (16:45)
[2020-07-16] MEDS ORDERED: methylPREDNISolone SOD SUCC 1000 MG in NORMAL SALINE 100ml IV ONE (17:19)
--- NOTE | 2020-07-16 19:07 | NUR ---
Report from Barrie in ED
--- NOTE | 2020-07-16 19:25 | NUR ---
pt to floor, walked from [facility] in [place]- 1 ps contact
[2020-07-16 19:30] VITALS: BP 176/85
[2020-07-16 20:00] VITALS: BP 135/76
[2020-07-16] MEDS: HYDROcodone/acetaminophen 10/325mg tab PO PRN (20:55)
[2020-07-16 22:00] VITALS: BP 138/72
[2020-07-17 05:56] LABS: BASOPHILS % (AUTO) 0.3 % (0-1); EOSINOPHILS % (AUTO) 0 % (0-6); HEMATOCRIT 46.9 % (35.0-45.0); HEMOGLOBIN 15.5 g/dl (12.0-16.0); LYMPHOCYTES # (AUTO) 0.9 X10'3 (1.1-4.8); LYMPHOCYTES % (AUTO) 8.9 % (21-51); MEAN CORPUSCULAR HEMOGLOBIN 28.9 PG (27.0-31.0); MEAN CORPUSCULAR HGB CONC 33.1 g/dL (33.0-36.5); MEAN CORPUSCULAR VOLUME 87.3 FL (78-98); MEAN PLATELET VOLUME 7.6 FL (7.4-10.4); MONOCYTES # (AUTO) 0.1 X10'3 (0-0.9); MONOCYTES % (AUTO) 0.7 % (2-12); NEUTROPHILS # (AUTO) 9.2 X10'3 (1.8-7.7); NEUTROPHILS % (AUTO) 90.1 % (42-75); PLATELET COUNT 239 X10'3 (140-440); RED BLOOD COUNT 5.37 X10'6 (4.20-5.60); RED CELL DISTRIBUTION WIDTH 12.9 % (11.5-14.5); WHITE BLOOD COUNT 10.2 X10'3 (4.5-11.0)
[2020-07-17 06:00] VITALS: BP 115/73
[2020-07-17 06:13] LABS: ALBUMIN 3.3 G/DL (3.4-5.0); ANION GAP 13 (8-16); BLOOD UREA NITROGEN 14 MG/DL (7-18); BUN/CREATININE RATIO 16.7 (6.6-38.0); CALCIUM 9.2 MG/DL (8.5-10.1); CHLORIDE 106 MMOL/L (99-107); CREATININE 0.84 MG/DL (0.40-0.90); GLUCOSE 140 MG/DL (70-104); POTASSIUM 4.2 MMOL/L (3.5-5.1); SODIUM 142 MMOL/L (135-145); TOTAL CARBON DIOXIDE 23.4 MMOL/L (24-32); eGFR 72 ML/MIN
--- NOTE | 2020-07-17 06:32 | NUR ---
Report to Rebeca TEAGUE
[2020-07-17] MEDS ORDERED: methylPREDNISolone sod succ 125mg/2ml vial IV SCH (08:00)
[2020-07-17] MEDS: methylPREDNISolone SOD SUCC 1000 MG in NORMAL SALINE 100ml IV SCH (08:35)
[2020-07-17] MEDS: HYDROcodone/acetaminophen 10/325mg tab PO PRN ×3 (10:38→22:20)
--- NOTE | 2020-07-17 12:06 | NUR ---
PAGER ID: [phone] MESSAGE: [phone] Claudia Harris Neuro nurse recommending PT to work with her secondary to vision problems. [phone] SERENA
[2020-07-17] MEDS: enoxaparin 40mg/0.4ml syringe SUBCUT SCH ×2 (13:04→20:14)
[2020-07-17 18:00] VITALS: BP 174/78
--- NOTE | 2020-07-17 18:30 | NUR ---
Report from Rebeca TEAGUE
[2020-07-17] MEDS ORDERED: enoxaparin 40mg/0.4ml syringe SUBCUT SCH (20:00)
[2020-07-17 22:00] VITALS: BP 137/70
[2020-07-18] MEDS: HYDROcodone/acetaminophen 10/325mg tab PO PRN ×4 (05:12→20:21)
[2020-07-18 06:00] VITALS: BP 131/72
[2020-07-18 06:07] LABS: BASOPHILS # (AUTO) 0.1 X10'3 (0-0.2); BASOPHILS % (AUTO) 0.4 % (0-1); EOSINOPHILS % (AUTO) 0 % (0-6); HEMATOCRIT 43.6 % (35.0-45.0); HEMOGLOBIN 14.7 g/dl (12.0-16.0); LYMPHOCYTES # (AUTO) 1.3 X10'3 (1.1-4.8); LYMPHOCYTES % (AUTO) 5.9 % (21-51); MEAN CORPUSCULAR HEMOGLOBIN 29.1 PG (27.0-31.0); MEAN CORPUSCULAR HGB CONC 33.8 g/dL (33.0-36.5); MEAN CORPUSCULAR VOLUME 86.2 FL (78-98); MEAN PLATELET VOLUME 7.9 FL (7.4-10.4); MONOCYTES % (AUTO) 4.6 % (2-12); NEUTROPHILS # (AUTO) 18.9 X10'3 (1.8-7.7); NEUTROPHILS % (AUTO) 89.1 % (42-75); PLATELET COUNT 246 X10'3 (140-440); RED BLOOD COUNT 5.05 X10'6 (4.20-5.60); RED CELL DISTRIBUTION WIDTH 12.9 % (11.5-14.5); WHITE BLOOD COUNT 21.2 X10'3 (4.5-11.0)
[2020-07-18 06:28] LABS: ALBUMIN 3.2 G/DL (3.4-5.0); ANION GAP 12 (8-16); BLOOD UREA NITROGEN 15 MG/DL (7-18); BUN/CREATININE RATIO 18.3 (6.6-38.0); CALCIUM 8.9 MG/DL (8.5-10.1); CHLORIDE 108 MMOL/L (99-107); CREATININE 0.82 MG/DL (0.40-0.90); GLUCOSE 137 MG/DL (70-104); SODIUM 143 MMOL/L (135-145); TOTAL CARBON DIOXIDE 22.8 MMOL/L (24-32); eGFR 74 ML/MIN
--- NOTE | 2020-07-18 06:31 | NUR ---
Report To Magaly TEAGUE
--- NOTE | 2020-07-18 06:45 | NUR ---
Patient in room ORTHO 4022B. I have received report from HO ENGLAND and had the opportunity to ask questions and assume patient care.
[2020-07-18] MEDS: methylPREDNISolone SOD SUCC 1000 MG in NORMAL SALINE 100ml IV SCH (09:11)
[2020-07-18] MEDS: duloxetine 30mg CAPSULE.DR PO SCH (09:11)
[2020-07-18 10:00] VITALS: BP 125/69
[2020-07-18 14:00] VITALS: BP 149/94
[2020-07-18] MEDS: ondansetron/PF 4mg/2ml inj IV PRN (14:14)
[2020-07-18 18:00] VITALS: BP 135/77
--- NOTE | 2020-07-18 18:21 | NUR ---
Problems reprioritized. Patient report given, questions answered & plan of care reviewed with HO BOSTON.
[2020-07-18] MEDS: enoxaparin 40mg/0.4ml syringe SUBCUT SCH (20:21)
[2020-07-18 22:00] VITALS: BP 156/89
[2020-07-19 06:00] VITALS: BP 150/89
--- NOTE | 2020-07-19 06:11 | NUR ---
Problems reprioritized. Patient report given, questions answered & plan of care reviewed with HO Buckner.
--- NOTE | 2020-07-19 06:31 | NUR ---
Patient in room ORTHO 4022. I have received report from Roxanna TEAGUE and had the opportunity to ask questions and assume patient care.
[2020-07-19] MEDS: HYDROcodone/acetaminophen 10/325mg tab PO PRN ×4 (07:04→19:53)
[2020-07-19] MEDS: methylPREDNISolone SOD SUCC 1000 MG in NORMAL SALINE 100ml IV SCH (07:04)
[2020-07-19] MEDS: duloxetine 30mg CAPSULE.DR PO SCH (07:05)
[2020-07-19 07:13] LABS: BASOPHILS % (AUTO) 0.2 % (0-1); EOSINOPHILS % (AUTO) 0 % (0-6); HEMATOCRIT 42.1 % (35.0-45.0); LYMPHOCYTES # (AUTO) 1.3 X10'3 (1.1-4.8); LYMPHOCYTES % (AUTO) 8.7 % (21-51); MEAN CORPUSCULAR HGB CONC 33.1 g/dL (33.0-36.5); MEAN CORPUSCULAR VOLUME 87.4 FL (78-98); MONOCYTES # (AUTO) 0.8 X10'3 (0-0.9); MONOCYTES % (AUTO) 4.9 % (2-12); NEUTROPHILS # (AUTO) 13.3 X10'3 (1.8-7.7); NEUTROPHILS % (AUTO) 86.2 % (42-75); PLATELET COUNT 227 X10'3 (140-440); RED BLOOD COUNT 4.82 X10'6 (4.20-5.60); RED CELL DISTRIBUTION WIDTH 13.1 % (11.5-14.5); WHITE BLOOD COUNT 15.5 X10'3 (4.5-11.0)
[2020-07-19 07:44] LABS: ALBUMIN 3.1 G/DL (3.4-5.0); ANION GAP 7 (8-16); BLOOD UREA NITROGEN 16 MG/DL (7-18); BUN/CREATININE RATIO 21.3 (6.6-38.0); CALCIUM 8.9 MG/DL (8.5-10.1); CHLORIDE 110 MMOL/L (99-107); CREATININE 0.75 MG/DL (0.40-0.90); GLUCOSE 108 MG/DL (70-104); POTASSIUM 4.5 MMOL/L (3.5-5.1); SODIUM 144 MMOL/L (135-145); TOTAL CARBON DIOXIDE 26.6 MMOL/L (24-32); eGFR 82 ML/MIN
[2020-07-19 10:00] VITALS: BP 137/70
--- NOTE | 2020-07-19 16:31 | NUR ---
Pt continues to feel pain occasionally on the R side of her face. Pt states she feels like the nerves on the right side of her face are taught. Pt ambulated ortho/neuro unit with PT. PT had [facility] [place] [facility] neuro consult as well, per Duane bartholomew we are to continue current treatment plan. Will continue to monitor pt.
[2020-07-19 18:00] VITALS: BP 181/84
--- NOTE | 2020-07-19 18:33 | NUR ---
Problems reprioritized. Patient report given, questions answered & plan of care reviewed with Roxanna TEAGUE.
[2020-07-19] MEDS: enoxaparin 40mg/0.4ml syringe SUBCUT SCH (19:53)
[2020-07-19 22:00] VITALS: BP 180/89
[2020-07-19] MEDS ORDERED: hydrALAZINE 20mg/ml inj. IV PRN (23:00)
[2020-07-20] MEDS: HYDROcodone/acetaminophen 10/325mg tab PO PRN ×2 (05:59→11:04)
[2020-07-20 06:00] VITALS: BP 153/77
--- NOTE | 2020-07-20 06:32 | NUR ---
Problems reprioritized. Patient report given, questions answered & plan of care reviewed with HO Buckner.
[2020-07-20 07:27] LABS: BASOPHILS % (AUTO) 0 % (0-1); EOSINOPHILS % (AUTO) 0 % (0-6); HEMATOCRIT 43.5 % (35.0-45.0); HEMOGLOBIN 14.2 g/dl (12.0-16.0); LYMPHOCYTES # (AUTO) 1.5 X10'3 (1.1-4.8); LYMPHOCYTES % (AUTO) 12.3 % (21-51); MEAN CORPUSCULAR HEMOGLOBIN 28.5 PG (27.0-31.0); MEAN CORPUSCULAR HGB CONC 32.6 g/dL (33.0-36.5); MEAN CORPUSCULAR VOLUME 87.5 FL (78-98); MEAN PLATELET VOLUME 7.8 FL (7.4-10.4); MONOCYTES # (AUTO) 0.9 X10'3 (0-0.9); MONOCYTES % (AUTO) 7.3 % (2-12); NEUTROPHILS # (AUTO) 9.7 X10'3 (1.8-7.7); NEUTROPHILS % (AUTO) 80.4 % (42-75); PLATELET COUNT 227 X10'3 (140-440); RED BLOOD COUNT 4.97 X10'6 (4.20-5.60); RED CELL DISTRIBUTION WIDTH 13.1 % (11.5-14.5); WHITE BLOOD COUNT 12.1 X10'3 (4.5-11.0)
[2020-07-20 07:28] LABS: ALBUMIN 3.1 G/DL (3.4-5.0); ANION GAP 6 (8-16); BLOOD UREA NITROGEN 18 MG/DL (7-18); BUN/CREATININE RATIO 20.9 (6.6-38.0); CHLORIDE 109 MMOL/L (99-107); CREATININE 0.86 MG/DL (0.40-0.90); GLUCOSE 99 MG/DL (70-104); POTASSIUM 4.3 MMOL/L (3.5-5.1); SODIUM 142 MMOL/L (135-145); TOTAL CARBON DIOXIDE 26.6 MMOL/L (24-32); eGFR 70 ML/MIN
[2020-07-20] MEDS: methylPREDNISolone SOD SUCC 1000 MG in NORMAL SALINE 100ml IV SCH (08:18)
[2020-07-20] MEDS: duloxetine 30mg CAPSULE.DR PO SCH (08:22)
[2020-07-20] MEDS ORDERED: HYDR-3972 PO (09:36)
[2020-07-20] MEDS ORDERED: PRED10TA23 PO (09:36)
--- NOTE | 2020-07-20 09:42 | NUR ---
PAGER ID: [phone] MESSAGE: Sita TEAGUE [phone] RE: Lola Banks [phone].. Pt has questions about return to work, pt doesn't current have PCP. Thank you.
[2020-07-20 10:00] VITALS: BP 157/76
--- NOTE | 2020-07-20 12:21 | NUR ---
Pt discharged with . Iv removed with no complications. All questions/concerns reviewed with pt. Pt belongings sent with pt. Pt discharged is stable condition in private vehicle.
== END 2020-07-20 11:50 | disposition home or self-care (01) | DRG 60 ==
LOC: ER 12:21 → EEVIPCON 12:21 → ED HOLD 14:58 → ORTHO 4S 19:10 → OBSVTOIN 07-17 15:00
PROVIDERS: ADMIT Internal Medicine; ATTEND Internal Medicine
DX: G35 Multiple sclerosis (principal); R29.810 Facial weakness; F32.9 Major depressive disorder, single episode, unspecified; Z79.899 Other long term (current) drug therapy; Z98.1 Arthrodesis status; F17.200 Nicotine dependence, unspecified, uncomplicated; R47.81 Slurred speech; G89.29 Other chronic pain; G43.909 Migraine, unspecified, not intractable, without status migrainosus; R20.0 Anesthesia of skin
CPT/HCPCS: 36415; 70450; 70544; 70553; 71045; 80048; 80053; 82948; 83880; 84484; 85025; 85610; 85730; 87081; 93005; 97110; 97116; 97162; 97530; 99291; A9575; G0378; J0360; J1650; J2270; J2405; J2930; Q9967

== ENCOUNTER 2021-07-22 08:35 | Outpatient (CLI) | payer BC ==
[~2021-07-22 08:35] MED LIST changes: -BACL20TA PO; -DULO-31 PO; +DULO60CA65 PO; -GABA-530 PO; -GABA-532 PO; +HYDR-3972 PO; -HYDR-4383 PO; -MELO-102 PO; +PENI-88 PO
[2021-07-22 09:54] LABS: CLARITY,URINE SLIGHTLY CLOUDY (Clear); COLOR,URINE YELLOW (Yellow); GLUCOSE, URINE NEGATIVE (Neg); KETONES,URINE NEGATIVE (Neg); LEUKOCYTE ESTERASE ,URINE NEGATIVE (Neg); NITRITES, URINE NEGATIVE (Neg); OCCULT BLOOD,URINE NEGATIVE (Neg); PROTEIN,URINE NEGATIVE (Neg); UROBILINOGEN,URINE 0.2 E.U/dL (0.2-1.0)
[2021-07-22 09:54] LABS: BASOPHILS # (AUTO) 0.1 X10'3 (0-0.2); BASOPHILS % (AUTO) 0.9 % (0-1); EOSINOPHILS # (AUTO) 0.1 X10'3 (0-0.9); EOSINOPHILS % (AUTO) 2.2 % (0-6); HEMATOCRIT 44.8 % (35.0-45.0); HEMOGLOBIN 14.9 g/dl (12.0-16.0); LYMPHOCYTES # (AUTO) 2.2 X10'3 (1.1-4.8); MEAN CORPUSCULAR HEMOGLOBIN 29.2 PG (27.0-31.0); MEAN CORPUSCULAR HGB CONC 33.4 g/dL (33.0-36.5); MEAN CORPUSCULAR VOLUME 87.6 FL (78-98); MEAN PLATELET VOLUME 7.4 FL (7.4-10.4); MONOCYTES # (AUTO) 0.4 X10'3 (0-0.9); MONOCYTES % (AUTO) 6.1 % (2-12); NEUTROPHILS % (AUTO) 58.8 % (42-75); PLATELET COUNT 229 X10'3 (140-440); RED BLOOD COUNT 5.11 X10'6 (4.20-5.60); RED CELL DISTRIBUTION WIDTH 13.7 % (11.5-14.5); WHITE BLOOD COUNT 6.8 X10'3 (4.5-11.0)
[2021-07-22 10:08] LABS: UA COLLECTION TYPE CLN CATCH MIDSTREAM
[2021-07-22 10:18] LABS: ALANINE AMINOTRANSFERASE 33 U/L (12-78); ALBUMIN 3.5 G/DL (3.4-5.0); ALKALINE PHOSPHATASE 86 IU/L (46-116); AMYLASE 32 U/L (25-115); ANION GAP 10 (8-16); ASPARTATE AMINO TRANSFERASE 19 U/L (10-37); BILIRUBIN,TOTAL 0.4 MG/DL (0.1-1.0); BLOOD UREA NITROGEN 11 MG/DL (7-18); BUN/CREATININE RATIO 15.3 (6.6-38.0); C-REACTIVE PROTEIN 1.04 MG/DL (0.0-0.5); CALCIUM 8.7 MG/DL (8.5-10.1); CHLORIDE 106 MMOL/L (99-107); CHOLESTEROL 258 MG/DL (0-200); CREATININE 0.72 MG/DL (0.40-0.90); GLUCOSE 97 MG/DL (70-104); HDL CHOLESTEROL 37 MG/DL (35-60); LDL CHOLESTEROL 195 MG/DL (50-100); LIPASE 81 U/L (73-393); MAGNESIUM 2.2 MG/DL (1.5-2.4); PHOSPHORUS 3.3 MG/DL (2.3-4.5); SODIUM 140 MMOL/L (135-145); TOTAL CARBON DIOXIDE 24.1 MMOL/L (24-32); TOTAL PROTEIN 6.9 G/DL (6.4-8.2); TRIGLYCERIDES 121 MG/DL (20-135); eGFR 86 ML/MIN
[2021-07-22 10:21] LABS: BACTERIA,URINE 4+ /HPF (Neg); MUCUS STRANDS NONE SEEN /LPF (Neg); RBC,URINE 0-2 /HPF (0-2); SQUAMOUS EPITHELIAL CELL,UR MANY /LPF (FEW)
[2021-07-23 14:16] LABS: ANTINUCLEAR ANTIBODIES Positive (Negative); HEPATITIS C ANTIBODY <0.1 s/co ratio (0.0-0.9)
== END 2021-07-22 23:59 | disposition home or self-care (01) ==
LOC: VAS 08:35
PROVIDERS: ATTEND Family Medicine
DX: Z01.419 Encounter for gynecological examination (general) (routine) without abnormal findings (principal); F17.200 Nicotine dependence, unspecified, uncomplicated; I10 Essential (primary) hypertension; R53.82 Chronic fatigue, unspecified; K21.9 Gastro-esophageal reflux disease without esophagitis; G35 Multiple sclerosis; G47.00 Insomnia, unspecified; R51.9 Headache, unspecified; F32.9 Major depressive disorder, single episode, unspecified; G47.33 Obstructive sleep apnea (adult) (pediatric); Z82.49 Family history of ischemic heart disease and other diseases of the circulatory system; Z72.89 Other problems related to lifestyle; Z92.89 Personal history of other medical treatment
CPT/HCPCS: 36415; 80053; 80061; 81001; 82043; 82150; 82306; 82607; 82746; 83690; 83735; 84100; 84439; 84443; 85025; 85651; 86038; 86140; 86480; 86803; 93978

== ENCOUNTER 2021-11-22 00:48 | Emergency (ER) | payer BC ==
[~2021-11-22] VITALS: Ht 167.6 cm; Wt 100.0 kg
[2021-11-22] MEDS ORDERED: cyclobenzaprine 10mg tablet PO ONE (05:30)
[2021-11-22] MEDS ORDERED: ketorolac tromethamine 15mg/ml inj. IV ONE (05:30)
[2021-11-22] MEDS ORDERED: normal saline 1000ML IV soln IV ONE (05:30)
[2021-11-22] MEDS ORDERED: morphine 2 MG/ML inj. syringe IV ONE (05:30)
[2021-11-22] MEDS ORDERED: methylPREDNISolone sod succ 125mg/2ml vial IV ONE (05:35)
[2021-11-22] MEDS ORDERED: PRED20TA PO (05:36)
[2021-11-22] MEDS ORDERED: ondansetron/PF 4mg/2ml inj IV ONE (05:45)
[2021-11-22] MEDS ORDERED: CYCL-1 PO (06:20)
[2021-11-22 06:40] LABS: BASOPHILS # (AUTO) 0.1 X10'3 (0-0.2); BASOPHILS % (AUTO) 0.5 % (0-1); EOSINOPHILS # (AUTO) 0.1 X10'3 (0-0.9); EOSINOPHILS % (AUTO) 1.4 % (0-6); HEMATOCRIT 46.5 % (35.0-45.0); HEMOGLOBIN 15.7 g/dl (12.0-16.0); LYMPHOCYTES # (AUTO) 1.3 X10'3 (1.1-4.8); LYMPHOCYTES % (AUTO) 13.4 % (21-51); MEAN CORPUSCULAR HEMOGLOBIN 29.8 PG (27.0-31.0); MEAN CORPUSCULAR HGB CONC 33.8 g/dL (33.0-36.5); MEAN CORPUSCULAR VOLUME 88.2 FL (78-98); MEAN PLATELET VOLUME 7.9 FL (7.4-10.4); MONOCYTES # (AUTO) 0.6 X10'3 (0-0.9); NEUTROPHILS # (AUTO) 7.6 X10'3 (1.8-7.7); NEUTROPHILS % (AUTO) 78.7 % (42-75); PLATELET COUNT 198 X10'3 (140-440); RED BLOOD COUNT 5.27 X10'6 (4.20-5.60); RED CELL DISTRIBUTION WIDTH 13.1 % (11.5-14.5); WHITE BLOOD COUNT 9.7 X10'3 (4.5-11.0)
[2021-11-22 06:41] LABS: ALANINE AMINOTRANSFERASE 46 U/L (12-78); ALBUMIN 3.8 G/DL (3.4-5.0); ALKALINE PHOSPHATASE 98 IU/L (46-116); ANION GAP 13 (8-16); ASPARTATE AMINO TRANSFERASE 21 U/L (10-37); BILIRUBIN,TOTAL 0.2 MG/DL (0.1-1.0); BLOOD UREA NITROGEN 11 MG/DL (7-18); BUN/CREATININE RATIO 13.9 (6.6-38.0); CALCIUM 8.8 MG/DL (8.5-10.1); CHLORIDE 104 MMOL/L (99-107); CREATININE 0.79 MG/DL (0.40-0.90); GLUCOSE 111 MG/DL (70-104); MAGNESIUM 2.1 MG/DL (1.5-2.4); SODIUM 139 MMOL/L (135-145); TOTAL CARBON DIOXIDE 22.3 MMOL/L (24-32); TOTAL PROTEIN 7.5 G/DL (6.4-8.2); eGFR 77 ML/MIN
--- NOTE | 2021-11-22 08:04 | NUR ---
Pt d/c home via ambulatory with family member in good condition, instructions given, pt verbalized understanding.
[2021-11-22 08:05] VITALS: BP 132/81
== END 2021-11-22 08:07 | disposition home or self-care (01) ==
LOC: ER 00:49
DX: M79.604 Pain in right leg (principal); M79.605 Pain in left leg; R20.0 Anesthesia of skin; G35 Multiple sclerosis; G43.909 Migraine, unspecified, not intractable, without status migrainosus; Z79.899 Other long term (current) drug therapy
CPT/HCPCS: 36415; 80053; 83605; 83735; 84145; 85025; 87040; 96361; 96374; 96375; 99284; J1885; J2270; J2405; J2930; J7030; 87077

== ENCOUNTER 2022-05-05 12:49 | Outpatient (CLI) | payer BC ==
[~2022-05-05 12:49] MED LIST changes: +CYCL-1 PO
[2022-05-05 14:06] LABS: BASOPHILS # (AUTO) 0.1 X10'3 (0-0.2); BASOPHILS % (AUTO) 0.7 % (0-1); EOSINOPHILS # (AUTO) 0.2 X10'3 (0-0.9); EOSINOPHILS % (AUTO) 2.3 % (0-6); HEMATOCRIT 44.7 % (35.0-45.0); HEMOGLOBIN 14.8 g/dl (12.0-16.0); LYMPHOCYTES # (AUTO) 2.6 X10'3 (1.1-4.8); LYMPHOCYTES % (AUTO) 29.6 % (21-51); MEAN CORPUSCULAR HEMOGLOBIN 28.1 PG (27.0-31.0); MEAN CORPUSCULAR HGB CONC 33.1 g/dL (33.0-36.5); MEAN PLATELET VOLUME 7.4 FL (7.4-10.4); MONOCYTES # (AUTO) 0.7 X10'3 (0-0.9); MONOCYTES % (AUTO) 7.5 % (2-12); NEUTROPHILS # (AUTO) 5.3 X10'3 (1.8-7.7); NEUTROPHILS % (AUTO) 59.9 % (42-75); PLATELET COUNT 267 X10'3 (140-440); RED BLOOD COUNT 5.26 X10'6 (4.20-5.60); RED CELL DISTRIBUTION WIDTH 14.1 % (11.5-14.5); WHITE BLOOD COUNT 8.9 X10'3 (4.5-11.0)
[2022-05-05 14:21] LABS: ALANINE AMINOTRANSFERASE 44 U/L (12-78); ALBUMIN 3.7 G/DL (3.4-5.0); ALKALINE PHOSPHATASE 110 IU/L (46-116); ANION GAP 11 (8-16); ASPARTATE AMINO TRANSFERASE 31 U/L (10-37); BILIRUBIN,TOTAL 0.3 MG/DL (0.1-1.0); BLOOD UREA NITROGEN 14 MG/DL (7-18); BUN/CREATININE RATIO 15.1 (6.6-38.0); CALCIUM 9.2 MG/DL (8.5-10.1); CHLORIDE 104 MMOL/L (99-107); CREATININE 0.93 MG/DL (0.40-0.90); GLUCOSE 114 MG/DL (70-104); POTASSIUM 3.6 MMOL/L (3.5-5.1); SODIUM 140 MMOL/L (135-145); TOTAL CARBON DIOXIDE 24.9 MMOL/L (24-32); TOTAL PROTEIN 7.3 G/DL (6.4-8.2); eGFR 64 ML/MIN
[2022-05-07 07:13] LABS: IMMUNOGLOBULIN A, QN, SERUM 245 mg/dL (87-352); IMMUNOGLOBULIN G, QN, SERUM 1021 mg/dL (586-1602); IMMUNOGLOBULIN M, QN, SERUM 103 mg/dL (26-217)
[2022-05-07 08:13] LABS: IMMUNOGLOBULIN A, QN, SERUM 258 mg/dL (87-352); IMMUNOGLOBULIN G, QN, SERUM 1048 mg/dL (586-1602); IMMUNOGLOBULIN M, QN, SERUM 106 mg/dL (26-217)
== END 2022-05-05 23:59 | disposition home or self-care (01) ==
LOC: LAB 12:49
PROVIDERS: ATTEND Nurse Practitioner Family
DX: G35 Multiple sclerosis (principal)
CPT/HCPCS: 36415; 80053; 82784; 85025; 86334

== ENCOUNTER 2022-10-01 09:31 | Emergency (ER) | payer BC ==
[~2022-10-01] VITALS: Ht 167.6 cm; Wt 99.1 kg
[2022-10-01 09:33] VITALS: BP 177/87
[2022-10-01] MEDS ORDERED: NEOM10DR45 RIGHT EAR (10:12)
[2022-10-01] MEDS ORDERED: FLUT16SP2 BOTHNARES (10:12)
[2022-10-01] MEDS ORDERED: CETI10TA15 PO (10:12)
== END 2022-10-01 10:26 | disposition home or self-care (01) ==
LOC: ER 09:31
DX: H92.13 Otorrhea, bilateral (principal); R09.89 Other specified symptoms and signs involving the circulatory and respiratory systems
CPT/HCPCS: 99283

== ENCOUNTER 2024-01-10 14:58 | Emergency (ER) | payer BC ==
[~2024-01-10] VITALS: Ht 167.6 cm; Wt 114.6 kg
[~2024-01-10 14:58] MED LIST changes: +CETI10TA15 PO; +FLUT16SP2 BOTHNARES; +NEOM10DR45 RIGHT EAR
[2024-01-10 15:31] LABS: BASOPHILS # (AUTO) 0.1 X10'3 (0-0.2); EOSINOPHILS # (AUTO) 0.2 X10'3 (0-0.9); EOSINOPHILS % (AUTO) 1.6 % (0-6); HEMATOCRIT 43.9 % (35.0-45.0); HEMOGLOBIN 14.6 g/dl (12.0-16.0); LYMPHOCYTES # (AUTO) 2.3 X10'3 (1.1-4.8); LYMPHOCYTES % (AUTO) 24.3 % (21-51); MEAN CORPUSCULAR HEMOGLOBIN 28.5 PG (27.0-31.0); MEAN CORPUSCULAR HGB CONC 33.3 g/dL (33.0-36.5); MEAN CORPUSCULAR VOLUME 85.8 FL (78-98); MEAN PLATELET VOLUME 6.9 FL (7.4-10.4); MONOCYTES # (AUTO) 0.7 X10'3 (0-0.9); MONOCYTES % (AUTO) 7.9 % (2-12); NEUTROPHILS # (AUTO) 6.1 X10'3 (1.8-7.7); NEUTROPHILS % (AUTO) 65.2 % (42-75); PLATELET COUNT 303 X10'3 (140-440); RED BLOOD COUNT 5.12 X10'6 (4.20-5.60); RED CELL DISTRIBUTION WIDTH 13.3 % (11.5-14.5); WHITE BLOOD COUNT 9.4 X10'3 (4.5-11.0)
[2024-01-10 15:34] LABS: BILIRUBIN,URINE NEGATIVE (Neg); CLARITY,URINE SLIGHTLY CLOUDY (Clear); COLOR,URINE YELLOW (Yellow); GLUCOSE, URINE NEGATIVE (Neg); KETONES,URINE NEGATIVE (Neg); LEUKOCYTE ESTERASE ,URINE NEGATIVE (Neg); NITRITES, URINE NEGATIVE (Neg); OCCULT BLOOD,URINE NEGATIVE (Neg); PROTEIN,URINE NEGATIVE (Neg); UROBILINOGEN,URINE 0.2 E.U/dL (0.2-1.0)
[2024-01-10 15:36] LABS: URINE HCG NEGATIVE (NEG)
[2024-01-10 15:45] LABS: UA COLLECTION TYPE CLN CATCH MIDSTREAM
[2024-01-10 15:46] LABS: BACTERIA,URINE 3+ /HPF (Neg); RBC,URINE 0-2 /HPF (0-2); SQUAMOUS EPITHELIAL CELL,UR MODERATE /LPF (FEW)
[2024-01-10 15:47] LABS: ALANINE AMINOTRANSFERASE 36 U/L (12-78); ALBUMIN 3.9 G/DL (3.4-5.0); ALBUMIN/GLOBULIN RATIO 0.9 (1.1-1.5); ALKALINE PHOSPHATASE 113 IU/L (46-116); ANION GAP 10 (8-16); ASPARTATE AMINO TRANSFERASE 25 U/L (10-37); BILIRUBIN,TOTAL 0.3 MG/DL (0.1-1.0); BLOOD UREA NITROGEN 17 MG/DL (7-18); BUN/CREATININE RATIO 18.5 (10.0-20.0); CALCIUM 9.6 MG/DL (8.5-10.1); CHLORIDE 103 MMOL/L (99-107); CREATININE 0.92 MG/DL (0.40-0.90); GLUCOSE 91 MG/DL (70-104); LIPASE 58 U/L (16-77); POTASSIUM 3.8 MMOL/L (3.5-5.1); SODIUM 140 MMOL/L (135-145); TOTAL CARBON DIOXIDE 27.4 MMOL/L (24-32); TOTAL PROTEIN 8.2 G/DL (6.4-8.2); eCRCL 67 ML/MIN; eGFR 64 ML/MIN
[2024-01-10] MEDS: ketorolac trometh 15mg/ml vial 15 MG/ML ML IV ONE (16:10)
[2024-01-10] MEDS: HYDROmorphone 1 mg/ml syringe IV ONE ×3 (16:10→18:05)
[2024-01-10] MEDS: ondansetron/PF 4mg/2ml inj IV ONE (16:10)
[2024-01-10] MEDS ORDERED: DICL50TA8 PO (17:48)
[2024-01-10] MEDS ORDERED: CEPH500C3 PO (17:48)
[2024-01-10] MEDS ORDERED: HYDR-3965 PO (17:48)
[2024-01-10] MEDS: HYDROcodone/acetaminophen 5mg/325mg tablet PO ONE (18:40)
[2024-01-10 18:46] VITALS: BP 133/99; PULSE 78; RESP 16; TEMP 98.3; O2SAT 97
== END 2024-01-10 18:49 | disposition home or self-care (01) ==
LOC: ER 14:59
DX: M54.16 Radiculopathy, lumbar region (principal); R10.9 Unspecified abdominal pain; G43.909 Migraine, unspecified, not intractable, without status migrainosus; G89.29 Other chronic pain; Z79.899 Other long term (current) drug therapy; Z79.51 Long term (current) use of inhaled steroids
CPT/HCPCS: 36415; 74176; 80053; 81001; 81025; 83690; 85025; 87088; 87186; 96374; 96375; 96376; 99285; J1170; J1885; J2405

== ENCOUNTER 2024-03-21 07:45 | Outpatient (CLI) | payer BC ==
[~2024-03-21 07:45] MED LIST changes: +DICL50TA8 PO; +HYDR-3965 PO
== END 2024-03-21 23:59 | disposition home or self-care (01) ==
LOC: MRI02 07:45
PROVIDERS: ATTEND Nurse Practitioner Family
DX: M47.817 Spondylosis without myelopathy or radiculopathy, lumbosacral region (principal); M51.379 Other intervertebral disc degeneration, lumbosacral region without mention of lumbar back pain or lower extremity pain; M47.813 Spondylosis without myelopathy or radiculopathy, cervicothoracic region; M48.02 Spinal stenosis, cervical region; M50.323 Other cervical disc degeneration at C6-C7 level; M16.11 Unilateral primary osteoarthritis, right hip; M25.451 Effusion, right hip; M70.61 Trochanteric bursitis, right hip; M25.751 Osteophyte, right hip; K57.30 Diverticulosis of large intestine without perforation or abscess without bleeding; D25.0 Submucous leiomyoma of uterus; R29.898 Other symptoms and signs involving the musculoskeletal system; Y93.89 Activity, other specified
CPT/HCPCS: 72141; 72148; 73721

== ENCOUNTER 2024-11-14 12:53 | Outpatient (CLI) | payer BC ==
[2024-11-14 13:27] LABS: MEAN PLATELET VOLUME 6.7 FL (7.4-10.4); RED CELL DISTRIBUTION WIDTH 13.5 % (11.5-14.5)
[2024-11-14 13:50] LABS: CHOL/HDL RATIO 6.9 (0.00-4.99); CREATININE 0.87 MG/DL (0.40-0.90); LDL CHOLESTEROL 192 MG/DL (50-100); TOTAL CARBON DIOXIDE 25.3 MMOL/L (24-32); eGFR 68 ML/MIN
[2024-11-17 05:13] LABS: FOLATE SERUM(FOLIC) 5.9 ng/mL (>3.0)
== END 2024-11-14 23:59 | disposition home or self-care (01) ==
LOC: LAB 12:53
PROVIDERS: ATTEND Nurse Practitioner Family
DX: I10 Essential (primary) hypertension (principal); G35 Multiple sclerosis; K21.9 Gastro-esophageal reflux disease without esophagitis; G47.33 Obstructive sleep apnea (adult) (pediatric); R53.82 Chronic fatigue, unspecified; Z12.11 Encounter for screening for malignant neoplasm of colon; Z68.41 Body mass index [BMI] 40.0-44.9, adult
CPT/HCPCS: 36415; 80053; 80061; 82607; 82746; 84439; 84443; 85025

== ENCOUNTER 2024-11-17 12:45 | Outpatient (CLI) | payer BC ==
[2024-11-17] MEDS ORDERED: GADOTERATE MEGLUMINE 7.5 MMOL/15 ML VIAL IV ONE (15:12)
--- NOTE | 2024-11-17 15:50 | RADIOLOGY REPORT ---
PROCEDURE: MR MRI HEAD Indication: MULTIPLE SCLEROSIS COMPARISON: MRI HEAD on DOS: 07/16/20, MRI HEAD on DOS: 02/19/19 TECHNIQUE: Multiplanar multisequence images of the brain are obtained with and without contrast inclu ding axial T1 post con images. FINDINGS: There is no abnormal diffusion restriction. Lxun-pv-bxldakem periventricular and subcortical white ma tter T2/FLAIR hyperintense changes, pronounced at the callososeptal interface. There is no intracrani al hemorrhage. No extra-axial fluid collection, mass effect or midline shift. The ventricles are midl ine and normal in size. The cisterns are patent. Normal intracranial flow voids are preserved. No abn ormal susceptibility signal. No abnormal intracranial enhancement. 1.8 cm right maxillary sinus mucosal retention cyst / polyp. Frontal, anterior ethmoid sinus disease Mastoids well pneumatized. The visualized orbits are unremarkable. IMPRESSION: No acute cerebrovascular ischemia. Wzss-qs-nhgrmxwg T2/FLAIR hyperintense changes consistent with known history of demyelinating disease . No intracranial enhancement to suggest active demyelinating disease Paranasal sinus disease.
--- NOTE | 2024-11-17 16:26 | RADIOLOGY REPORT ---
PROCEDURE: MR MRI THORACIC SPINE Indication: MULTIPLE SCLEROSIS COMPARISON: MR MRI LUMBAR SPINE on DOS: 03/21/24, MR MRI C SPINE on DOS: 03/21/24, MRI THORACIC SPINE on DOS: 02/20/19 TECHNIQUE: Multiplanar multisequence images of the the thoracic spine are obtained with and without c ontrast. FINDINGS: The thoracic vertebral body heights are maintained. Xcns-vh-cfhpokrx multilevel disc space narrowing and desiccation. No abnormal marrow edema. Anterior cervical fusion hardware C5, C6. At t6-t7 there is a left paracentral disc protrusion extending 5 mm posteriorly which impresses upon the left ventral aspect of the cord. No high-grade stenosis present. No significant neural foraminal stenosis. 2 mm disc protrusion at T9-10. The thoracic cord is normal in morphology and signal. No abnormal thoracic cord enhancement. No abnor mal Thoracic marrow enhancement. IMPRESSION: Pzob-ju-dnaczddf thoracic degenerative disc disease. Left paracentral disc protrusion at T6-T7 which impresses upon the left ventral aspect of the cord. N o cord edema or high-grade stenosis present. Recommend neurosurgical consultation for further evaluat ion. No abnormal cord enhancement. No abnormal marrow enhancement. No evidence for active demyelinating di sease in the thoracic cord.
== END 2024-11-17 23:59 | disposition home or self-care (01) ==
LOC: MRI 12:45
PROVIDERS: ATTEND Nurse Practitioner Family
DX: M51.34 Other intervertebral disc degeneration, thoracic region (principal); M51.24 Other intervertebral disc displacement, thoracic region; M48.04 Spinal stenosis, thoracic region; J32.8 Other chronic sinusitis; I67.82 Cerebral ischemia; G35 Multiple sclerosis
CPT/HCPCS: 70553; 72157; A9575

== ENCOUNTER 2025-02-23 11:29 | Emergency (ER) | payer BC ==
[~2025-02-23] VITALS: Ht 167.6 cm; Wt 113.6 kg
[2025-02-23 11:31] VITALS: TEMP 97.5
[2025-02-23] MEDS: morphine 4 MG/ML inj SYRINge IM ONE (12:26)
[2025-02-23] MEDS: HYDROcodone/acetaminophen 10/325mg tab PO ONE (12:28)
[2025-02-23 12:37] LABS: MEAN PLATELET VOLUME 6.9 FL (7.4-10.4); RED CELL DISTRIBUTION WIDTH 13.1 % (11.5-14.5)
[2025-02-23] MEDS: ketorolac trometh 15mg/ml vial 15 MG/ML ML IM ONE (12:47)
[2025-02-23] MEDS: normal saline 1000ml 1,000 ML IV ONE (12:55)
[2025-02-23 13:01] LABS: CREATININE 0.93 MG/DL (0.40-0.90); TOTAL CARBON DIOXIDE 24.2 MMOL/L (24-32); eCRCL 65 ML/MIN; eGFR 63 ML/MIN
[2025-02-23 13:09] LABS: LEUKOCYTE ESTERASE ,URINE NEGATIVE (Neg); NITRITES, URINE NEGATIVE (Neg); OCCULT BLOOD,URINE NEGATIVE (Neg)
[2025-02-23 13:14] LABS: URINE HCG NEGATIVE (NEG)
[2025-02-23 13:17] LABS: UA COLLECTION TYPE CLN CATCH MIDSTREAM
--- NOTE | 2025-02-23 13:45 | Physician Documentation ---
History of Present Illness ~ General Chief Complaint: Flank Pain Stated Complaint: FLANK PAIN Time Seen by MD: 11:55 Primary Medical Doctor: JAY Mode of Arrival: POV History of Present Illness Initial Comments A 54-year-old female with past medical history of multiple sclerosis presented to the ED with chief complaints of severe right flank pain radiating to the right upper quadrant and groin since the past 1 week. Patient claims her pain has been constant, episodic, 4/10 in intensity since the past 1 week but however lately since the past few hours her pain has been 10 on 10 in intensity and constant with no relieving factors. She denied episodes of nausea or vomiting. She denied past medical history of renal calculi. She claims of having similar episode a couple of months ago and she attributes this to not taking her medication for multiple sclerosis- Kesimpta. As patient is in acute distress, could not give me complete medical history. Medication Reconciliation Allergies: Coded Allergies: No Known Allergies (Unverified , 02/23/25) Scheduled Cetirizine HCl (Cetirizine HCl), 1 TAB PO DAILY Cyclobenzaprine* (Cyclobenzaprine*), 1 TAB PO HS Diclofenac Sodium (Diclofenac Sodium), 1 TAB PO Q12H Duloxetine HCl (Duloxetine HCl), 1 CAP PO DAILY, (Reported) Fluticasone Propionate (Flonase), 2 SPRAYS BOTHNARES DAILY Neomycin/Polymyxin B Sulf/Hc (Ygvxmhed-Wtjpujgze-Mm Ear Susp), 4 DROP RIGHT EAR Q8H Penicillin V Potassium (PENICILLIN V POTASSIUM tablet), 1 TAB PO BID, (Reported) Scheduled PRN Hydrocodone Bit/Acetaminophen 5/325 MG (Gardner 5/325 MG), 1 TAB PO Q6H PRN for pain Hydrocodone Bit/Acetaminophen (Hydrocodon-Acetaminophn 10-325 tablet), 1 TAB PO Q6H PRN for SEVERE PAIN 7-10 Past Medical History Past Medical History: Migraine, Multiple Sclerosis, Chronic Pain Past Surgical History: noncontributory Alcohol Use: None Drug Use: none Lives with: Family Lives In: Home Occupation: employed Review of Systems ROS Constitutional: No fever, chills, dizziness, weight gain or loss Eyes: No pain, erythema, discharge, blurring of vision ENT: No sore throat, epistaxis, tinnitus Cardiovascular: No Shortness of breath. Chest pressure, chest discomfort, palpitations, syncope, lower extremity edema, paroxysmal nocturnal dyspnea Respiratory: No Shortness of breath and cough present, No hemoptysis Gastrointestinal: Normal appetite. No nausea, vomiting, diarrhea, constipation, hematemesis, abdominal pain, bloating, melena or fresh blood Reports severe right flank pain radiating to the right upper quadrant and groin Integumentary: No change in skin, hair, nails. No swelling, bruising, abrasions Neurologic: No headache, neck pain, numbness or tingling of the extremities, weakness Psychiatric: No delusions, depression, loss of interest in normal activity or change in sleep pattern, hallucinations, suicidal ideations Endocrine: No fatigue, weakness, polydipsia, polyuria, change in appetite, heat or cold intolerance, sweating, dry skin Hematological: No bleeding, petechiae, bruising Allergies: No asthma or urticaria Physical Exam Physical Exam Vital Signs: Temperature: 97.5, Source: Temporal, Heart Rate: 91, Respiratory Rate: 32, BP: 194/114, Pulse Oximetry: 98, Weight: 113.600 Oxygen Flow Rate: 0 Physical Exam Awake , alert, and oriented x4, in acute distress HEENT: Atraumatic, normocephalic, EOMI, anicteric sclera ; pink conjunctiva Neck: Trachea midline. Supple, full range of motion, no JVD Cardiac: Tachycardic with no murmurs all over the precordium. Respiratory: Equal breath sounds bilaterally, no tachypnea, no wheezing ,rub or rales, Chest wall is symmetric and without deformity. Gastrointestinal: Abdomen symmetric, non-distended, soft, non-tender, normal bowel sounds x4 quadrant, normoactive, no hepatosplenomegaly Musculoskeletal: No pedal edema, no cyanosis Neurological: Speech is clear, alert, and oriented x 4. No motor or sensory deficit, deep tendon reflexes normal, cerebellar intact. Cranial nerves II-XII intact. Skin: Warm and dry Progress Results/Orders Results/Orders Orders - BENITEZ COOPER, RES Ct Abdomen Pelvis (02/23/25 ) Completed Orders - BENITEZ COOPER, RES Hydrocodone/Apap 10/325 (Gardner 10/325mg (02/23/25 12:20) Morphine 4mg/Ml Inj. (Morphine Inj.) (02/23/25 12:25) Ketorolac Trometh 15mg/Ml Vial (Toradol (02/23/25 12:35) Ct Abdomen Pelvis (02/23/25 ) Normal Saline 1000ml (0.9% Sodium Chlori (02/23/25 12:55) Hydralazine Inj. (Apresoline Inj.) (02/23/25 13:40) Medications Received in ER Medications (Trade) Dose Ordered Sig/Cali Route PRN Reason Start Time Stop Time Status Last Admin Dose Admin (Gardner 10/325mg tab) 1 tab ONCE ONCE PO 02/23/25 12:20 02/23/25 12:21 DC 02/23/25 12:28 1 TAB (morphine inj.) 4 mg ONCE ONCE IM 02/23/25 12:25 02/23/25 12:26 DC 02/23/25 12:26 4 MG (Toradol injection) 15 mg ONCE ONCE IM 02/23/25 12:35 02/23/25 12:39 DC 02/23/25 12:47 15 MG Vital Signs 02/23/25 02/23/25 02/23/25 02/23/25 11:31 12:05 12:26 12:28 Temp 97.5 Pulse 91 Resp 24 24 24 B/P (MAP) 194/114 Pulse Ox 98 O2 Flow Rate 0 02/23/25 12:47 Resp 32 Laboratory Tests Test 02/23/25 11:10 02/23/25 12:12 Urine Specimen Description Cln catch midstream Urine Color Straw Urine Clarity Clear Urine pH 6.0 Urine Specific [place] <=1.005 Urine Protein Negative Urine Glucose (UA) Negative Urine Ketones Negative Urine Occult Blood Negative Urine Nitrite Negative Urine Bilirubin Negative Urine Urobilinogen 0.2 Urine Leukocyte Esterase Negative Urine Culture Indicated Not ind Volume Urine Centrifuged 10 ml Urine HCG, Qualitative Negative Urine Comment White Blood Count 9.3 Red Blood Count 5.15 Hemoglobin 14.8 Hematocrit 44.4 Mean Corpuscular Volume 86.1 Mean Corpuscular Hemoglobin 28.7 Mean Corpuscular Hemoglobin Concent 33.4 Red Cell Distribution Width 13.1 Platelet Count 317 Mean Platelet Volume 6.9 L Neutrophils (%) (Auto) 67.9 Lymphocytes (%) (Auto) 22.9 Monocytes (%) (Auto) 7.1 Eosinophils (%) (Auto) 1.3 Basophils (%) (Auto) 0.8 Neutrophils # (Auto) 6.3 Lymphocytes # (Auto) 2.1 Monocytes # (Auto) 0.7 Eosinophils # (Auto) 0.1 Basophils # (Auto) 0.1 CBC Comment Sodium Level 138 Potassium Level 4.2 Chloride Level 103 Carbon Dioxide Level 24.2 Anion Gap 11 Blood Urea Nitrogen 17 Creatinine 0.93 H Estimated GFR/1.73 m2 63 BUN/Creatinine Ratio 18.3 Glucose Level 102 Calcium Level 9.8 Total Bilirubin 0.4 Aspartate Amino Transf (AST/SGOT) 38 H Alanine Aminotransferase (ALT/SGPT) 40 Alkaline Phosphatase 117 H Total Protein 8.7 H Albumin 4.3 Globulin 4.4 H Albumin/Globulin Ratio 1.0 L Lipase 68 Chemistry Comments Medical Decision Making Additional information obtaine: old records Findings Renal right costovertebral pain- possibly renal calculi Right flank pain radiating to the groin and right upper quadrant Denied any history of renal calculi in the past Similar episodes couple of months ago and ongoing since the last 1 week Worsened over the past few hours, 10 on 10 in intensity Denied hematuria/ urinary disturbances/ urinary symptoms No signs of sepsis Vitals: High blood pressure 178/85 due to severe pain Urinalysis: No urinary tract infection Urine test negative Plan Patient received 1 dose of IM morphine 4 mg Followed by 1 dose of Toradol 15 mg IM once IV normal saline bolus once ordered CT abdomen pelvis stat ordered Differential Diagnosis Right renal calculi Cholelithiasis Musculoskeletal pain Departure Impression: Primary Impression: Low back pain Additional Impressions: Renal colic Calculus of kidney Additional Instructions: Hydration and diet: Drink plenty of clear fluids like water to prevent dehydration, but avoid alcohol, caffeine, and spicy or fatty foods. When you feel ready to eat, start with small amounts of bland foods like rice, crackers, or applesauce. Rest: Get plenty of rest until you feel better. Comfort: A heating pad set on low or a warm bath can help relieve some dis comfort. Return to the emergency department immediately if you have any of the following symptoms:Worsening or severe abdominal pain, Fever , Persistent vomiting that prevents you from keeping fluids down, Bloody stools or vomit, Other concerning symptoms, such as chest, jaw, shoulder, arm, or back pain, shortness of breath, or excessive sweating Referrals: NO PRIMARY CARE PROVIDER (PCP) Signature Scribe Signature: No scribe Attestation: Benitez Cooper MD Internal Medicine Resident, PGY-2 BENITEZ COOPER, RES Feb 23, 2025 13:45
--- NOTE | 2025-02-23 14:16 | RADIOLOGY REPORT ---
Exam: CT CT ABDOMEN PELVIS History: For any renal calculi Comparison Study: CT CT ABDOMEN PELVIS on DOS: 01/10/24 TECHNIQUE: Multidetector CT of the abdomen AND PELVIS without IV contrast. Axial, coronal and sagittal multiplanar reformats were obtained from the axial data set by the technologist. Radiation Dose Information: CT Dose: CTDI volume is 35.01 mGy. Dose-length product is 1704.06 mGy*cm FINDINGS: Bibasilar atelectasis. Partially visualized heart is unremarkable. 1 cm left hepatic lobe cyst. Mild hepatomegaly. Otherwise, liver, spleen, gallbladder, and right adrenal glands unremarkable. 2.5 cm left adrenal nodule measuring up - 2 Hounsfield units which may represent an adenoma. Mild right renal lower pole scarring. Kidneys, ureters and urinary bladder unremarkable. Slight bulky appearance of the uterus which May be from fibroids. Otherwise, uterus and adnexa unremarkable. Bxpa-xt-epdsfhfq distention of the stomach. Small bowel loops are unremarkable. Appendix is unremarkable. Small amount of fecal material within the colon. Sigmoid diverticulosis without diverticulitis. No evidence of intraperitoneal free air or free fluid. No evidence of aortic aneurysm. Mild atherosclerotic calcification of the aorta and bilateral iliacs. No significant lymphadenopathy. Tiny fat containing umbilical hernia. The soft tissues are unremarkable. No evidence of acute osseous abnormalities. Sclerotic focus over the left proximal femur which may represent a small bone island. IMPRESSION: No evidence of Acute abdominopelvic abnormalities. 2.5 cm left adrenal nodule which may represent an adenoma. Sigmoid diverticulosis without diverticulitis. Mild hepatomegaly with a 1 cm left hepatic lobe cyst.
[2025-02-23] MEDS: hydrALAZINE 20mg/ml inj. IV ONE (14:39)
[2025-02-23] MEDS: ketorolac trometh 15mg/ml vial 15 MG/ML ML IV ONE (14:39)
[2025-02-23] MEDS ORDERED: HYDR-3973 PO (14:40)
[2025-02-23] MEDS: dexamethasone sod phosphate 10mg/ml inj IV STA (14:51)
[2025-02-23 14:59] VITALS: BP 163/102; PULSE 76; RESP 18; O2SAT 94
== END 2025-02-23 15:05 | disposition home or self-care (01) ==
LOC: ER 11:29
DX: N20.0 Calculus of kidney (principal); G43.909 Migraine, unspecified, not intractable, without status migrainosus
CPT/HCPCS: 36415; 74176; 80053; 81003; 81025; 83690; 85025; 96372; 96374; 99285; J1100; J1885; J2270; J7030

== ENCOUNTER 2025-02-27 15:14 | Emergency (ER) | payer BC ==
[~2025-02-27] VITALS: Ht 167.6 cm; Wt 109.1 kg
[~2025-02-27 15:14] MED LIST changes: +HYDR-3973 PO
--- NOTE | 2025-02-27 15:53 | Physician Documentation ---
History of Present Illness ~ Chief Complaint: Headache Stated Complaint: SEE CHIEF COMPLAINT Time Seen by MD: 15:42 Primary Medical Doctor: JAY BECK This is a 54-year-old female presents to the ED with a complaint of acute onset neck and head pain which started on Wednesday. He states she had a recent MS flare-up and was seen here in the ED for it.. He reports that her headache and neck pain are worse with a any lateral movement when turning her head. States that the neck pain starts at the base of her skull. Denies any acute injury , denies any dizziness, numbness or tingling. denies any fevers or any other associated symptoms correlated with a infectious processes Day of Onset: Feb 27, 2025 Medication Reconciliation Allergies: Coded Allergies: No Known Allergies (Unverified , 02/27/25) Scheduled Cetirizine HCl (Cetirizine HCl), 1 TAB PO DAILY Cyclobenzaprine HCl (Cyclobenzaprine HCl), 1 TAB PO Q8H Cyclobenzaprine* (Cyclobenzaprine*), 1 TAB PO HS Diclofenac Sodium (Diclofenac Sodium), 1 TAB PO Q12H Duloxetine HCl (Duloxetine HCl), 1 CAP PO DAILY, (Reported) Fluticasone Propionate (Flonase), 2 SPRAYS BOTHNARES DAILY Neomycin/Polymyxin B Sulf/Hc (Pcteuabw-Xrgwlhbja-Mt Ear Susp), 4 DROP RIGHT EAR Q8H Penicillin V Potassium (PENICILLIN V POTASSIUM tablet), 1 TAB PO BID, (Reported) Prednisone (Prednisone), 1 TAB PO BID Scheduled PRN Hydrocodone Bit/Acetaminophen 5/325 MG (Marion 5/325 MG), 1 TAB PO Q6H PRN for pain Hydrocodone Bit/Acetaminophen (Hydrocodon-Acetaminophn 10-325 tablet), 1 TAB PO Q6H PRN for SEVERE PAIN 7-10 Hydrocodone Bit/Acetaminophen (Hydrocodone-Apap 10-325 Tablet), 1 TABLET PO Q8H PRN for pain Past Medical History Past Medical History: Migraine, Multiple Sclerosis, Chronic Pain Past Surgical History: noncontributory Alcohol Use: None Drug Use: none Lives with: Family Lives In: Home Occupation: employed Review of Systems All Other Systems at this time: Reviewed and Negative ROS As stated above in the HPI, otherwise all systems are reviewed and negative. Physical Exam Vital Signs: Temperature: 97.6, Source: Temporal, Heart Rate: 111, Respiratory Rate: 18, BP: 207/129, Pulse Oximetry: 98, Weight: 109.090 Physical Exam General: Alert, no apparent distress. neck: Tender to light palpation bilaterally to the trapezius muscle Extremities: Normal range of motion, no deformity. Neurologic: Oriented x4. no focal deficits Psychiatric: Normal mood and affect. Skin: Normal color, warm and dry. No edema, no ecchymosis. Progress Results/Orders Results/Orders Completed Orders - JOSEPH IBARRA WEB ANALYST Ketorolac Trometh 30mg/Ml Vial (Toradol (02/27/25 15:55) Cyclobenzaprine Tablet (Flexeril Tablet) (02/27/25 15:55) Dexamethasone Inj (Decadron 10mg/Ml Inj) (02/27/25 15:53) Medications Received in ER Medications (Trade) Dose Ordered Sig/Cali Route PRN Reason Start Time Stop Time Status Last Admin Dose Admin (Toradol inj. 30mg/ml) 30 mg ONCE ONCE IV 02/27/25 15:55 02/27/25 15:56 DC 02/27/25 16:06 30 MG (Flexeril tablet) 10 mg ONCE ONCE PO 02/27/25 15:55 02/27/25 15:56 DC 02/27/25 16:07 10 MG (Decadron 10mg/ ml inj) 10 mg ONCE STAT PO 02/27/25 15:53 02/27/25 15:54 DC 02/27/25 16:05 10 MG Vital Signs 02/27/25 02/27/25 02/27/25 15:22 16:01 16:06 Temp 97.6 97.6 Pulse 111 86 Resp 18 17 16 B/P (MAP) 207/129 184/108 (133) Pulse Ox 98 97 O2 Flow Rate 0 Medical Decision Making Additional information obtaine: old records Findings Suspect this patient is suffering from neck and head pain secondary to MSand/or possibly stress-induced tension headache/neck pain. My exam indicated positive findings for musculoskeletal tension in her cervical region. Does not have any other associated symptoms no chest pain no dizziness. This time I am going to treat her pain and discharge her with a short dose of steroids Differential Dx:Considerations: Include: TORRES-Cluster, TORRES-Migraine, TORRES- Hypertensive, TORRES-Muscular contraction, TORRES-Post lumbar puncture, Carbon monoxide toxicity, Close head injuyr, CVA, Fever induced, Hemorrhage-Epidural, Hemorrhage-Intracerebral, Hemorrhage-Subarachnoid, Hemorrhage-Subdural, Mass lesion, Meningitis, Post-traumtic, Pseudotumor cerebri, Sinusitis, Temporal arteritis, Trigeminal neuralgia, Other Departure Disposition: 01 HOME / SELF CARE / HOMELESS Impression: Primary Impression: Headache Additional Impression: Neck pain Condition: Stable Discharge Instructions: Tension Headache, Adult, [id number] Referrals: NO PRIMARY CARE PROVIDER (PCP) Prescriptions Cyclobenzaprine HCl (Cyclobenzaprine HCl) 10 Mg Tablet 1 TAB PO Q8H for muscle spasms for 10 Days, #30 TAB Prov: JOSEPH IBARRA NP 02/27/25 Prednisone (Prednisone) 10 Mg Tablet 1 TAB PO BID for 5 Days, #10 TAB Prov: JOSEPH IBARRA NP 02/27/25 Education Educated: Patient Educated regarding: diagnosis Signature Scribe Signature: h Attestation: Scribed for Joseph Ibarra Rod Welder by Joseph Pineda NP . 02/27/25 16:07 JOSEPH IBARRA NP Feb 27, 2025 15:53
[2025-02-27 16:01] VITALS: BP 184/108; PULSE 86; O2SAT 97
[2025-02-27] MEDS: dexamethasone sod phosphate 10mg/ml inj PO STA (16:05)
[2025-02-27] MEDS: ketorolac trometh 30MG/ML vial 30 MG/ML VIAL IV ONE (16:06)
[2025-02-27] MEDS ORDERED: PRED10TA23 PO (16:08)
[2025-02-27] MEDS ORDERED: CYCL-394 PO (16:08)
[2025-02-27 16:53] VITALS: RESP 16
[2025-02-27 16:54] VITALS: TEMP 97.6
== END 2025-02-27 16:52 | disposition home or self-care (01) ==
LOC: ER 15:14
DX: R51.9 Headache, unspecified (principal); M54.2 Cervicalgia; Z88.1 Allergy status to other antibiotic agents; Z88.5 Allergy status to narcotic agent; Z88.8 Allergy status to other drugs, medicaments and biological substances
CPT/HCPCS: 96374; 99283; J1100; J1885